=== PATIENT | male | born 1985 | race African-American/Black ===

== ENCOUNTER 2017-05-27 15:46 | Inpatient (IN) | payer SELFPAY ==
[2017-05-27 17:11] LABS: Urine Bacteria Absent (Absent); Urine Bilirubin Negative (Negative); Urine Glucose Negative (Negative); Urine Nitrite Negative (Negative)
[2017-05-27] MEDS ORDERED: oxyCODONE/Acetamin 5/325 MG* TAB PO ONE (17:48)
--- NOTE | 2017-05-27 18:15 | RAD ---
Indication: Left flank pain. Real-time sonography of the left kidney was performed. The left kidney measures 10.8 x 6.0 x 4.9 cm. No hydronephrosis is noted. IMPRESSION: Unremarkable left kidney.
[2017-05-27 18:30] LABS: Hematocrit 43 % (42-52); Hemoglobin 14.5 g/dl (14.0-18.0); Mean Corpuscular HGB Conc 34 g/dl (31-36); Mean Corpuscular Hemoglobin 30 pg (27-31); Mean Corpuscular Volume 89 fL (80-94); Mean Platelet Volume 8 um3 (7.4-10.4); Red Blood Count 4.77 10^6/ul (4.0-5.4); Red Cell Distribution Width 14 % (10.5-15); White Blood Count 9.3 10^3/ul (3.5-10.8)
[2017-05-27 18:44] LABS: Albumin 4.3 g/dL (3.2-5.2); BUN/Creatinine Ratio 10.1 (8-20); C Reactive Protein 158.95 mg/L (< 5.00); Calcium 9.6 mg/dL (8.6-10.3); EGFR African American 113.4 (>60); EGFR Non-African American 88.2 (>60); Globulin 2.9 g/dL (2-4); Potassium 3.9 mmol/L (3.5-5.0); Total Bilirubin 0.8 mg/dL (0.2-1.0); Total Protein 7.2 g/dL (6.4-8.9)
[2017-05-27] MEDS ORDERED: NS 0.9% 1000 ML* 1,000 ML IV ONE (19:59)
[2017-05-27] MEDS ORDERED: Ketorolac INJ* 30 MG/ML 1 ML VIAL IV ONE (19:59)
[2017-05-27] MEDS ORDERED: Ondansetron INJ* 2 MG/ML VIAL IV ONE (19:59)
--- NOTE | 2017-05-27 20:51 | RAD ---
Indication: Left flank pain. CT of the abdomen was performed after oral contrast administration. No IV contrast was given. Coronal and sagittal reconstructed images were obtained. The lung bases demonstrate no pleural fluid, nodules or masses. Heart is of normal size and configuration without pericardial effusion. The liver is normal in size. No focal lesions or intrahepatic ductal dilatation. The gallbladder demonstrates no calcified gallstones. No pericholecystic fluid or wall thickening is identified. The spleen is normal in size. No adrenal masses are noted. The kidneys demonstrate symmetric nephrograms. Small bowel demonstrates no abnormal dilatation. There is at the proximal descending colon reticulation of fat with suggestion of a small focal area of extraluminal air. This may represent a locally perforated diverticula and diverticulitis. Peridiverticular abscess is identified however. Minimal wall thickening of the descending colon is noted. The remainder of the colon is unremarkable. Urinary bladder is unremarkable. No free fluid is identified in the pelvis. The visualized bony structures are grossly unremarkable. IMPRESSION: Findings consistent with likely diverticulitis of the proximal descending colon near the splenic flexure. No peridiverticular abscess is noted. There is likely a tiny localized perforation with a small focus of extraluminal air noted in this region.
--- NOTE | 2017-05-27 21:42 | ED ---
Cathy Uriostegui Alfonso, scribed for Radha Rashid MD on 05/27/17 at 1744 . Abdominal Pain/Male - HPI Summary HPI Summary: This patient is a 31 year old M presenting to [facility] with a chief complaint of left flank pain since a few days ago. The patient rates the pain 8/10 in severity. Symptoms aggravated by cough and deep breath. Symptoms alleviated by nothing. Patient reports dysuria. Patient denies testicular pain and cough. He denies a history of narcotic use. - History of Current Complaint Chief Complaint: EDUrogenitalProblems Stated Complaint: LT FLANK PAIN,PELVIC PAIN Time Seen by Provider: 05/27/17 17:15 Hx Obtained From: Patient Onset/Duration: Gradual Onset, Lasting Days, Still Present Timing: Constant Severity Currently: Moderate Pain Intensity: 8 Pain Scale Used: 0-10 Numeric - 8/10 Location: Flank - L Character: Sharp Aggravating Factor(s): Deep Breaths, Other: - cough Alleviating Factor(s): Nothing Associated Signs And Symptoms: Positive: Other - dysuria. Patient denies testicular pain and cough. - Allergies/Home Medications Allergies/Adverse Reactions: Allergies Allergy/AdvReac Type Severity Reaction Status Date / Time Peanut Oil Allergy Hives/Diff. Verified 10/07/15 19:05 Breathing/I tching Tree Nuts Allergy Hives/Diff. Verified 10/07/15 19:05 Breathing/I tching PMH/Surg Hx/FS Hx/Imm Hx Opthamlomology History: Denies: Hx Legally Blind EENT History: Denies: Hx Deafness - Immunization History Date of Influenza Vaccine: did not get in Infectious Disease History: No Infectious Disease History: Denies: Traveled Outside the [place] in Last 30 Days - Family History Known Family History: Positive: Other - Grandmother with cancer, DM and HTN - Social History Lives: With Family - with girlfriend and child Alcohol Use: Occasionally Hx Substance Use: Yes Substance Use Type: Reports: Marijuana Hx Tobacco Use: Yes Smoking Status (MU): Light Every Day Tobacco Smoker Review of Systems Negative: Fever Negative: Cough Positive: Abdominal Pain - Left flank and LUQ pain Positive: dysuria, other - Negative testicular pain All Other Systems Reviewed And Are Negative: Yes Physical Exam - Summary Physical Exam Summary: General: Well appearing, no pain distress Skin: Warm, Skin Color Reflects Adequate Perfusion, Dry Eyes: EOMI, MARTHA ENT: Pharynx normal, TMs normal Neck: Supple, nontender Respiratory: CTA, breath sounds present, no rhonchi, no wheezes, no rales Cardiovascular: RRR, no murmur, no rub, no gallop Abdomen: Soft, Left flank and LUQ tenderness. Non-distended, no guarding, no rebound Bowel: Present Musculoskeletal: ALISE, No edema Neuro: Sensory/motor intact, A&Ox3, CN intact 2-12 Psych: Affect/mood appropriate Triage Information Reviewed: Yes Vital Signs On Initial Exam: Initial Vitals Temp Pulse Resp BP Pulse Ox 98.5 F 84 20 109/70 100 05/27/17 15:55 05/27/17 15:55 05/27/17 15:55 05/27/17 15:55 05/27/17 15:55 Vital Signs Reviewed: Yes - Jackson Coma Scale Coma Scale Total: 15 Diagnostics - Vital Signs Vital Signs Temp Pulse Resp BP Pulse Ox 05/27/17 15:55 98.5 F 84 20 109/70 100 - Laboratory Lab Results: Lab Results 05/27/17 Range/Units 16:55 Urine Color Venecia Urine Appearance Clear Urine pH 6.0 (5-9) Ur Specific [place] 1.030 (1.010-1.030) Urine Protein 1+(30 mg/dl) H (Negative) Urine Ketones 1+ H (Negative) Urine Blood Negative (Negative) Urine Nitrate Negative (Negative) Urine Bilirubin Negative (Negative) Urine Urobilinogen Negative (Negative) Ur Leukocyte Esterase Negative (Negative) Urine WBC (Auto) Trace(0-5/hpf) (Absent) Urine RBC (Auto) Trace(0-2/hpf) (Absent) Ur Squamous Epith Cells Present H (Absent) Urine Bacteria Absent (Absent) Urine Glucose Negative (Negative) Result Diagrams: 05/27/17 18:23 05/27/17 18:23 Lab Statement: Any lab studies that have been ordered have been reviewed, and results considered in the medical decision making process. - CT A/P CT Interpretation Completed By: Radiologist - Findings consistent with likely diverticulitis of the proximal descending colon near the splenic flexure. No peridiverticular abscess is noted. There is likely a tiny localized perforation with a small focus of extraluminal air noted in this region. ED physician has reviewed this radiology report and agrees. - Additional Comments Diagnostic Additional Comments: US renal reveals, per radiologist, Unremarkable left kidney. ED physician has reviewed this radiology report and agrees. Abdominal Pain Fem Course/Dx - Course Course Of Treatment: 31 yo male with luq pain with elevated crp ct shows diverticulitis with microperforation, pt covered with zosyn and case was discussed with Dr. Mayer - Diagnoses Provider Diagnoses: Diverticulitis Discharge - Discharge Plan Condition: Stable Disposition: ADMITTED TO [facility] documentation as recorded by the Cathy cancino Alfonso accurately reflects the service I personally performed and the decisions made by me, Radha Rashid MD.
[2017-05-27] MEDS ORDERED: Acetaminophen TAB* 325 MG PO PRN (22:11)
[2017-05-27] MEDS ORDERED: Morphine INJ* 2 MG/ML 1 ML CARPUJECT IV PRN (22:12)
[2017-05-28] MEDS: NS 0.9% 1000 ML* 1,000 ML IV SCH ×4 (00:11→23:34)
[2017-05-28] MEDS ORDERED: Zosyn per Pharmacy* NOTE FOLLOW UP SCH (01:00)
[2017-05-28] MEDS ORDERED: metroNIDAZOLE IV 250 MG/50ML* 50 ML IVPB SCH (01:00)
[2017-05-28] MEDS ORDERED: Ondansetron INJ* 2 MG/ML VIAL IV PRN (01:48)
[2017-05-28] MEDS: ZOSYN 3.375 GM Q8H per EXTENDED INFUSION IVPB SCH ×6 (05:00→19:38)
[2017-05-28] MEDS: Triamcinolone 0.025% OINT * 15 GM TUBE TOPICAL SCH ×4 (06:05→19:31)
[2017-05-28] MEDS: metroNIDAZOLE TAB* 250 MG PO SCH ×3 (08:36→19:29)
[2017-05-28] MEDS: Morphine INJ* 2 MG/ML 1 ML SYRINGE (TWO MG - NEW SYRINGE VERSION) IV PRN (08:39)
--- NOTE | 2017-05-28 10:07 | HP ---
HISTORY AND PHYSICAL: DATE OF ADMISSION: 05/27/17 CHIEF COMPLAINT: Left lower quadrant pain. HISTORY OF PRESENT ILLNESS: Mr. Wang is a 31-year-old man with no known past medical history who developed left lower quadrant pain about 24 hours prior to admission. He states the pain was 8/10 and steady. He has been unable to sleep due to the pain. The pain was located in his left upper quadrant and left flank. He has had no nausea, no vomiting, or diarrhea, but he has had some anorexia. Two days prior to development of pain, he did develop some urinary hesitancy and some mild dysuria, but denies any hematuria or frequency. There is no urethral discharge. He has had no fevers. PAST MEDICAL HISTORY: He had asthma as a child but this resolved. PAST SURGICAL HISTORY: Keloid removal from the right side of his neck. MEDICATIONS ON ADMISSION: None. ALLERGIES: None. FAMILY HISTORY: Notable for mother with atrial fibrillation. Maternal grandmother with diabetes. SOCIAL HISTORY: He works as a cook. He is . He has 2 children. He smokes tobacco, occasionally cigarette about twice a week. He drinks alcohol occasionally. He uses marijuana regularly. REVIEW OF SYSTEMS: The patient denies any fevers or weight loss. Patient denies any chest pain or palpitations. The patient denies any shortness of breath or cough. Remainder of his 14-point review of systems is negative other than mentioned in the HPI. PHYSICAL EXAMINATION GENERAL: He is alert, in no acute distress. VITAL SIGNS: Temperature is 36.5, pulse 84, respirations 20, blood pressure is 120/89, O2 sat is 97%. HEENT: Head is normocephalic, atraumatic. Sclerae anicteric. Pupils are equal , round, and reactive to light and accommodation. Oropharynx is moist, no lesions. NECK: No JVD. No carotid bruits. No thyromegaly. LUNGS: Clear to auscultation and percussion bilaterally. HEART: Regular rate and rhythm. No murmurs, rubs, or gallops. ABDOMEN: Soft, but tender in the left upper quadrant with guarding present. No rebound. There is no CVA tenderness. No palpable masses. Positive bowel sounds. EXTREMITIES: No peripheral edema. Dorsalis pedis pulses are 2+ bilaterally. NEUROLOGIC: Cranial nerves II through XII are intact. Motor strength is 5/5 throughout. Deep tendon reflexes are symmetric. SKIN: Notable for erythematous scaly rash circumferentially around the neck. PSYCHIATRIC: Alert and oriented x3. LABORATORY DATA: Sodium 125, potassium 3.9, chloride 99, bicarb 29, BUN 10, creatinine 0.99, glucose 88, calcium 9.6, albumin 4.3, AST 25, ALT 23, bilirubin 0.8, CRP 159. White count 9.3, hemoglobin 14.5, hematocrit 42%, platelets 227. Urinalysis shows 1+ protein, 1+ ketones. CT of abdomen and pelvis shows proximal descending colon with diverticulitis and probable microperforation. Renal ultrasound is negative for kidney stones. ASSESSMENT AND PLAN: A 31-year-old man presenting with diverticulitis first occasion. The patient will be admitted to the hospital for intravenous antibiotics due to the microperforation. There is a risk of abscess formation. Ideally we will give him quinolone and Flagyl, but apparently Flagyl is not available due to a nationwide shortage. He will be started on Zosyn IV in the ER. I am going to try him on oral Flagyl as an alternative. If he is doing well in a day or two he can go home on oral quinolone and Flagyl or oral Augmentin and Flagyl. For his urinary concerns GC, chlamydia and DNA probe has been sent from the ER appropriately, this will be followed up. UTI does not appear on the urinalysis. He has areas of eczema on his neck and this can be treated with topical steroids. The patient was advised to seek primary care upon discharge. For supportive care, he will have pain control, antiemetics as necessary, and intravenous fluids to prevent hypovolemia. DVT prophylaxis will be with just ambulation. Code status is full. [id number]/[facility] #: [id number] [facility]
--- NOTE | 2017-05-28 10:25 | PN ---
Subjective Date of Service: 05/28/17 Interval History: Mr. Wang is a 31 yo male with no significant PMH who presented to the ED on with concern for LLQ/left flank pain as well as urinary hesitancy and dysuria. ED evaluation revealed diverticulitis with ? microperforation. This morning, the patient is ambulating in room. He reports some mild improvement in pain but still endorses quite a bit of left flank pain. He is requesting something to drink and a small amount of food. Denies CP, SOB. No fever/chills overnight. Family History: Unchanged from Admission Social History: Unchanged from Admission Past Medical History: Unchanged from Admission Objective Active Medications: Acetaminophen (Tylenol Tab*) 650 mg PO Q4H PRN PRN Reason: HEADACHE/PAIN Sodium Chloride (Ns 0.9% 1000 Ml*) 1,000 mls @ 150 mls/hr IV PER RATE [facility] Last Admin: 05/28/17 08:35 Dose: 150 mls/hr Piperacillin Sod/Tazobactam (Sod 3.375 gm/ Sodium Chloride) 100 mls @ 25 mls/ hr IVPB Q8H [facility] Last Admin: 05/28/17 05:00 Dose: 25 mls/hr Metronidazole (Flagyl Tab*) 500 mg PO TID [facility] Last Admin: 05/28/17 08:36 Dose: 500 mg Morphine Sulfate (Morphine Inj (Syringe)*) 2 mg IV Q2H PRN PRN Reason: PAIN Last Admin: 05/28/17 08:39 Dose: 2 mg Ondansetron HCl (Zofran Inj*) 4 mg IV Q6H PRN PRN Reason: NAUSEA Pharmacy Consult (Zosyn Per Pharmacy*) 1 note FOLLOW UP .ZOSYN PER PHARMACY [facility] Triamcinolone Acetonide (Triamcinolone 0.025% Oint *) 1 applic TOPICAL TID [facility] Last Admin: 05/28/17 08:33 Dose: Not Given Vital Signs 05/27/17 05/27/17 05/28/17 23:38 23:45 00:12 Temperature 98.2 F 98.2 F 98.2 F Pulse Rate 70 70 70 Respiratory 20 16 20 Rate Blood Pressure 120/89 120/89 120/89 (mmHg) O2 Sat by Pulse 97 97 97 Oximetry 05/28/17 05/28/17 05/28/17 00:58 01:58 03:26 Temperature 97.8 F Pulse Rate 61 Respiratory 20 18 16 Rate Blood Pressure 110/60 (mmHg) O2 Sat by Pulse 99 Oximetry 05/28/17 05/28/17 05/28/17 07:55 08:39 09:39 Temperature 97.8 F Pulse Rate 58 Respiratory 18 16 16 Rate Blood Pressure 99/54 (mmHg) O2 Sat by Pulse 100 Oximetry Oxygen Devices in Use Now: None Appearance: Young male, ambulating in room, in NAD Eyes: No Scleral Icterus Ears/Nose/Mouth/Throat: Clear Oropharnyx, Mucous Membranes Moist Neck: NL Appearance and Movements; NL JVP Respiratory: Symmetrical Chest Expansion and Respiratory Effort, Clear to Auscultation Cardiovascular: NL Sounds; No Murmurs; No JVD, RRR Abdominal: - - Abdomen soft, LLQ/left flank tenderness with guarding, BS present Extremities: No Edema, No Clubbing, Cyanosis Skin: - - scaly rash noted around neck circumference, healed site to right neck (old keloid removal) Neurological: Alert and Oriented x 3, NL Muscle Strength and Tone Lines/Tubes/Other Access: Clean, Dry and Intact Peripheral IV Nutrition: Taking PO's Result Diagrams: 05/27/17 18:23 05/27/17 18:23 Additional Lab and Data: Lab Results 05/27/17 Range/Units 16:55 Urine Color Venecia Urine Appearance Clear Urine pH 6.0 (5-9) Ur Specific [place] 1.030 (1.010-1.030) Urine Protein 1+(30 mg/dl) H (Negative) Urine Ketones 1+ H (Negative) Urine Blood Negative (Negative) Urine Nitrate Negative (Negative) Urine Bilirubin Negative (Negative) Urine Urobilinogen Negative (Negative) Ur Leukocyte Esterase Negative (Negative) Urine WBC (Auto) Trace(0-5/hpf) (Absent) Urine RBC (Auto) Trace(0-2/hpf) (Absent) Ur Squamous Epith Cells Present H (Absent) Urine Bacteria Absent (Absent) Urine Glucose Negative (Negative) Assess/Plan/Problems-Billing Assessment: Mr. Wang is a 31 yo male who presented to the ED with left flank/LLQ pain that is secondary to diverticulitis. - Patient Problems (1) Diverticulitis Comment: CT showed diverticulitis with concern for microperforation Patient afebrile, though with persistent LLQ pain. Continue IV Zosyn and PO metronidazole (IV unavailable). Will attempt clear liquids, advance diet as tolerated and as clinically indicated. Continue supportive care with IVF, antiemetics, and analgesia. (2) Dysuria Code(s): R30.0 - DYSURIA Comment: UA does not indicate infection GC/chlamydia sent in ED and is pending. No stones seen on imaging (3) Eczema Code(s): L30.9 - DERMATITIS, UNSPECIFIED Comment: Continue topical triamcinolone. (4) DVT prophylaxis Comment: Encourage ambulation. Status and Disposition: Inpatient admission. D/c to home when medically stable.
[2017-05-28] MEDS ORDERED: Influenza VAC *QUAD* 2017-18* 0.5 ML SYRINGE IM ONE (13:00)
[2017-05-29] MEDS: ZOSYN 3.375 GM Q8H per EXTENDED INFUSION IVPB SCH ×6 (04:28→20:23)
[2017-05-29] MEDS: NS 0.9% 1000 ML* 1,000 ML IV SCH ×3 (06:05→17:50)
[2017-05-29 06:56] LABS: Hematocrit 39 % (42-52); Hemoglobin 13.2 g/dl (14.0-18.0); Mean Corpuscular HGB Conc 34 g/dl (31-36); Mean Corpuscular Hemoglobin 30 pg (27-31); Mean Corpuscular Volume 88 fL (80-94); Mean Platelet Volume 8 um3 (7.4-10.4); Red Blood Count 4.43 10^6/ul (4.0-5.4); Red Cell Distribution Width 14 % (10.5-15); White Blood Count 4.5 10^3/ul (3.5-10.8)
[2017-05-29 07:21] LABS: EGFR African American 112.1 (>60); EGFR Non-African American 87.2 (>60); Potassium 3.8 mmol/L (3.5-5.0)
[2017-05-29] MEDS: Triamcinolone 0.025% OINT * 15 GM TUBE TOPICAL SCH ×3 (08:53→21:06)
[2017-05-29] MEDS: metroNIDAZOLE TAB* 250 MG PO SCH ×3 (08:53→20:23)
[2017-05-29] MEDS: Morphine INJ* 2 MG/ML 1 ML SYRINGE (TWO MG - NEW SYRINGE VERSION) IV PRN ×3 (08:58→21:06)
[2017-05-29 09:16] LABS: C Reactive Protein 65.91 mg/L (< 5.00)
--- NOTE | 2017-05-29 18:36 | PN ---
Subjective Date of Service: 05/29/17 Interval History: Pt seen and evaluated at his bedside. He reports he feels "a little better today " but continues to have left lower quad pain which he states his better at rest and worse with movement. He denies nausea or vomiting. Denies appetite. He reports some loose stool but states this is mild. Reports his stomach feel "bubbly with lots of gas". No fever or chills. Denies hx of irregular stool patterns. Does not feel ready to go home. Family History: Unchanged from Admission Social History: Unchanged from Admission Past Medical History: Unchanged from Admission Objective Active Medications: Acetaminophen (Tylenol Tab*) 650 mg PO Q4H PRN PRN Reason: HEADACHE/PAIN Sodium Chloride (Ns 0.9% 1000 Ml*) 1,000 mls @ 150 mls/hr IV PER RATE [facility] Last Admin: 05/29/17 17:50 Dose: 150 mls/hr Piperacillin Sod/Tazobactam (Sod 3.375 gm/ Sodium Chloride) 100 mls @ 25 mls/ hr IVPB Q8H [facility] Last Admin: 05/29/17 11:40 Dose: 25 mls/hr Metronidazole (Flagyl Tab*) 500 mg PO TID [facility] Last Admin: 05/29/17 13:45 Dose: 500 mg Morphine Sulfate (Morphine Inj (Syringe)*) 2 mg IV Q2H PRN PRN Reason: PAIN Last Admin: 05/29/17 13:51 Dose: 2 mg Ondansetron HCl (Zofran Inj*) 4 mg IV Q6H PRN PRN Reason: NAUSEA Pharmacy Consult (Zosyn Per Pharmacy*) 1 note FOLLOW UP .ZOSYN PER PHARMACY [facility] Triamcinolone Acetonide (Triamcinolone 0.025% Oint *) 1 applic TOPICAL TID [facility] Last Admin: 05/29/17 13:45 Dose: 1 applic Vital Signs 05/28/17 05/28/17 05/28/17 19:19 20:00 23:32 Temperature 98.5 F 98.1 F Pulse Rate 60 60 Respiratory 20 18 15 Rate Blood Pressure 122/65 129/73 (mmHg) O2 Sat by Pulse 100 99 Oximetry 05/29/17 05/29/17 05/29/17 03:43 07:59 08:58 Temperature 98.0 F 98.3 F Pulse Rate 55 59 Respiratory 14 18 16 Rate Blood Pressure 123/69 128/76 (mmHg) O2 Sat by Pulse 100 100 Oximetry 05/29/17 05/29/17 05/29/17 09:08 09:58 12:56 Temperature 97.9 F Pulse Rate 64 Respiratory 16 16 16 Rate Blood Pressure 122/70 (mmHg) O2 Sat by Pulse 99 Oximetry 05/29/17 05/29/17 05/29/17 13:51 14:15 15:42 Temperature 98.4 F Pulse Rate 62 Respiratory 16 16 16 Rate Blood Pressure (mmHg) O2 Sat by Pulse 100 Oximetry 05/29/17 15:45 Temperature Pulse Rate Respiratory Rate Blood Pressure 128/70 (mmHg) O2 Sat by Pulse Oximetry Oxygen Devices in Use Now: None Result Diagrams: 05/29/17 06:36 05/29/17 06:36 Additional Lab and Data: Lab Results 05/27/17 Range/Units 16:55 Urine Color Venecia Urine Appearance Clear Urine pH 6.0 (5-9) Ur Specific [place] 1.030 (1.010-1.030) Urine Protein 1+(30 mg/dl) H (Negative) Urine Ketones 1+ H (Negative) Urine Blood Negative (Negative) Urine Nitrate Negative (Negative) Urine Bilirubin Negative (Negative) Urine Urobilinogen Negative (Negative) Ur Leukocyte Esterase Negative (Negative) Urine WBC (Auto) Trace(0-5/hpf) (Absent) Urine RBC (Auto) Trace(0-2/hpf) (Absent) Ur Squamous Epith Cells Present H (Absent) Urine Bacteria Absent (Absent) Urine Glucose Negative (Negative) Microbiology and Other Data: Microbiology 05/29/17 13:00 Stool Occult Blood (SACHIN) - Final Stool Assess/Plan/Problems-Billing Assessment: Mr. Wang is a 31 yo male who presented to the ED with left flank/LLQ pain that is secondary to diverticulitis. - Patient Problems (1) Diverticulitis Comment: CT showed diverticulitis with concern for microperforation Patient afebrile, though with persistent LLQ pain. Stool for occult blood negative. Continue IV Zosyn and PO metronidazole (IV unavailable). Will attempt clear liquids, advance diet as tolerated and as clinically indicated. Continue supportive care with IVF, antiemetics, and analgesia. GI to consult (2) Dysuria Comment: Improving UA does not indicate infection GC/chlamydia sent in ED and is pending. No stones seen on imaging (3) Eczema Code(s): L30.9 - DERMATITIS, UNSPECIFIED Comment: Continue topical triamcinolone. (4) DVT prophylaxis Comment: Encourage ambulation. Status and Disposition: Inpatient admission. D/c to home when medically stable.
--- NOTE | 2017-05-29 22:53 | CONS ---
GASTROENTEROLOGY CONSULT: DATE OF CONSULT: 05/29/17 CONSULTING PHYSICIAN: Batsheva Castaneda MD REASON FOR CONSULTATION: Apparent diverticulitis with microperforation, descending colon with no preceding illness. 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 Pain was the first symptom and it became excruciating and he took a bus ride in the next day to the emergency room. The bus drive was particularly painful. He was not having any diarrhea, fever, rash, headache, etc. There had been no illness in the preceding week and his bowel pattern has not changed. In the ER, he was afebrile with normal white count. CT scan showed a probable microperforation and diverticulitis on the left side. He was admitted, placed on antibiotics, and says he has been feeling better. PAST MEDICAL HISTORY: 1. Keloid removal from his neck. 2. Childhood asthma. MEDICATIONS: None at home. ALLERGIES: When he eats tree nuts, he may get some itchiness in the mouth. He does not get any respiratory effect. SOCIAL HISTORY: He is from [place] [facility] [place] originally. His mother is a nurse in a penitentiary there. He is , has 2 children and for the last 2 months , has worked at [employer]. He smokes less than 1 cigarette a day. His diet is general. He has not used toothpicks. REVIEW OF SYSTEMS: No history of hemoptysis, TB, chest pain evaluations, palpitation, syncope, hepatitis, or jaundice. 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 LFTs are normal. HCB testing is negative. PHYSICAL EXAM: He is a slender, generally healthy-appearing young man, in no distress. He does have a tattoo on his neck. There are couple small skin scars. HEENT exam is unremarkable. He has clear lungs and normal heart sounds. The abdomen is symmetric, flat with normal bowel sounds, soft though some guarding in the left upper quadrant. Rectal deferred. Extremities show no edema. DIAGNOSTIC STUDIES/LAB DATA: CBC baseline, 12/23/14, showed hemoglobin 14.3, hematocrit 44, platelets 238, sed rate 5. A sickle cell screen is pending. IMPRESSION: Probable diverticulitis on the left side left upper quadrant. This is clearly unusual at age 31. He does not have a family history of this that he knows of, but his knowledge is rather sketchy. There is no indication of vasculitis or a mechanical perforation. Somewhere down the road in 5 to 6 weeks, a colonoscopy would be indicated to document diverticulosis in the absence of any unexpected pathology. [id number]/[facility] #: [id number] MTDD
[2017-05-30] MEDS: ZOSYN 3.375 GM Q8H per EXTENDED INFUSION IVPB SCH ×4 (04:19→12:15)
[2017-05-30 05:24] LABS: Hematocrit 40 % (42-52); Hemoglobin 13.7 g/dl (14.0-18.0); Mean Corpuscular HGB Conc 34 g/dl (31-36); Mean Corpuscular Hemoglobin 30 pg (27-31); Mean Corpuscular Volume 88 fL (80-94); Mean Platelet Volume 8 um3 (7.4-10.4); Red Blood Count 4.53 10^6/ul (4.0-5.4); Red Cell Distribution Width 14 % (10.5-15); White Blood Count 4.6 10^3/ul (3.5-10.8)
[2017-05-30 05:38] LABS: BUN/Creatinine Ratio 3.1 (8-20); C Reactive Protein 36.69 mg/L (< 5.00); Calcium 9.1 mg/dL (8.6-10.3); EGFR African American 117.5 (>60); EGFR Non-African American 91.4 (>60); Potassium 3.3 mmol/L (3.5-5.0)
[2017-05-30] MEDS: Triamcinolone 0.025% OINT * 15 GM TUBE TOPICAL SCH ×2 (08:47→14:02)
[2017-05-30] MEDS: metroNIDAZOLE TAB* 250 MG PO SCH ×2 (08:47→13:59)
--- NOTE | 2017-05-30 09:17 | PN ---
Subjective Date of Service: 05/30/17 Interval History: Patient seen and examined at bedside. Patent denies pain and is ready to try a regular diet. Patient states he has had 4 bowel movements yesterday - liquid but none overnight. Family History: Unchanged from Admission Social History: Unchanged from Admission Past Medical History: Unchanged from Admission Objective Active Medications: Acetaminophen (Tylenol Tab*) 650 mg PO Q4H PRN Sodium Chloride (Ns 0.9% 1000 Ml*) 1,000 mls @ 150 mls/hr IV PER RATE MUKUL Piperacillin Sod/Tazobactam (Sod 3.375 gm/ Sodium Chloride) 100 mls @ 25 mls/ hr IVPB Q8H MUKUL Metronidazole (Flagyl Tab*) 500 mg PO TID MUKUL Morphine Sulfate (Morphine Inj (Syringe)*) 2 mg IV Q2H PRN Ondansetron HCl (Zofran Inj*) 4 mg IV Q6H PRN Pharmacy Consult (Zosyn Per Pharmacy*) 1 note FOLLOW UP .ZOSYN PER PHARMACY MUKUL Triamcinolone Acetonide (Triamcinolone 0.025% Oint *) 1 applic TOPICAL TID [facility] 05/30/17 05/30/17 07:37 07:55 Temperature 98.0 F Pulse Rate 65 Respiratory 14 18 Rate Blood Pressure 133/83 (mmHg) O2 Sat by Pulse 100 Oximetry Oxygen Devices in Use Now: None Appearance: laying in bed, NAD Eyes: No Scleral Icterus, PERRLA Ears/Nose/Mouth/Throat: NL Teeth, Lips, Gums Neck: NL Appearance and Movements; NL JVP Respiratory: Symmetrical Chest Expansion and Respiratory Effort, Clear to Auscultation Cardiovascular: NL Sounds; No Murmurs; No JVD, RRR Abdominal: NL Sounds; No Tenderness; No Distention Skin: No Rash or Ulcers Neurological: Alert and Oriented x 3, NL Muscle Strength and Tone Lines/Tubes/Other Access: Clean, Dry and Intact Peripheral IV Result Diagrams: 05/30/17 05:10 05/30/17 05:10 Assess/Plan/Problems-Billing Mr. Wang is a 31 yo male who presented to the ED with left flank/LLQ pain that is secondary to diverticulitis. - Patient Problems (1) Diverticulitis Comment: CT showed diverticulitis with concern for microperforation. Pain improved. Will advance to low residue. Continue Zosyn and PO Flagyl. Replete KCl. D/C IVF. (2) Dysuria Comment: Improving. UA negative. GC/Chlamydia pending. (3) Eczema Comment: Continue topical triamcinolone. (4) DVT prophylaxis Comment: Encourage ambulation. (5) Full code status Status and Disposition: Inpatient admission. Stable to be discharged home.
[2017-05-30] MEDS: Morphine INJ* 2 MG/ML 1 ML SYRINGE (TWO MG - NEW SYRINGE VERSION) IV PRN (10:43)
[2017-05-30 12:37] LABS: Urine Bilirubin Negative (Negative); Urine Glucose Negative (Negative); Urine Nitrite Negative (Negative)
[2017-05-30 16:22] VITALS: BP 116/66
--- NOTE | 2017-05-31 08:57 | DS ---
CC: OPAL Trimble* DISCHARGE SUMMARY: DATE OF ADMISSION: 05/27/17 DATE OF DISCHARGE: 05/30/17 PRIMARY CARE PROVIDER: OPAL Trimble ATTENDING PHYSICIAN: Dr. Rosetta Cloud* (report dictated by Juliana Kendall NP). PRIMARY DIAGNOSIS: Acute diverticulitis. MEDICATIONS AT THE TIME OF DISCHARGE: New medications: 1. Augmentin 825 mg oral twice daily for 11 days. 2. Triamcinolone 1 application topical to hands daily. 3. Oxycodone 5 mg oral every 8 hours as needed, not to exceed 3 per day. The patient's I-STOP record was checked. The patient currently has no medications. The following medication to continue, Tessalon 100 mg three times daily. The patient is instructed to discontinue Tamiflu. IMAGES STUDIES WHILE IN THE HOSPITAL: On 05/27/17, CT of abdomen and pelvis without contrast, study is consistent with likely diverticulosis of the proximal descending colon near the splenic flexure. No peridiverticular abscess is noted. There is likely a tiny localized perforation with a small focus of extra luminal air noted in this region. HISTORY OF PRESENT ILLNESS AND HOSPITAL COURSE: Mr. Wang is a 31-year-old male with no significant past medical history who developed left lower quadrant pain, 24 hours prior to presenting to the emergency room on 05/27/17. The patient denied any nausea, vomiting or diarrhea. He presented to the emergency room for further evaluation and in the emergency room, CT scan of the abdomen and pelvis revealed diverticulitis with possible microperforation. In the emergency room, the patient was given IV Zosyn. He was admitted to the medical floor and continued on IV fluids and IV Zosyn. After 24-hour observation, his diet was advanced to oral liquids. He intermittently required IV morphine, but overall his pain improved. On the morning of 05/30/17, he was able to tolerate a low residue diet and is able to be transitioned to oral antibiotics. At this point, he was stable for discharge. Vital signs are as follows: Temperature 98 , heart rate 69, respiratory rate 14, blood pressure 116/68. His oxygen saturation is 98%. At this point, he is stable for discharge. DISCHARGE PLANNING: The patient is discharged on a low-residue diet. The patient is instructed regarding which foods high in fiber he should avoid. The patient has been instructed to follow up with Byron Laguerre. He has an appointment with him on 06/03/17 at 1:45 p.m. In addition, he is instructed to follow up with Dr. Gonzalez in 4 to 6 weeks for colonoscopy. I have reviewed all of these instructions with the patient. He is agreeable with his discharge today. This is a summarized report of a complex medical history and hospital stay. For more details, please see the entire medical record. TIME SPENT: Time for this discharge was 60 minutes, and 35 minutes were spent with the patient discussing medications, discharge plans and followup instructions. CONDITION ON DISCHARGE: Stable. JULIANA KENDALL NP [id number]/[facility] #: [id number] LEONA
== END 2017-05-30 17:00 | disposition home or self-care (01) | DRG 392 ==
LOC: ED 15:46 → MED 22:09
PROVIDERS: ADMIT Internal Medicine; ATTEND Internal Medicine
DX: K57.20 Diverticulitis of large intestine with perforation and abscess without bleeding (principal); F12.10 Cannabis abuse, uncomplicated; L30.9 Dermatitis, unspecified; F17.210 Nicotine dependence, cigarettes, uncomplicated; R30.0 Dysuria; Z83.3 Family history of diabetes mellitus
CPT/HCPCS: 36415; 74176; 76775; 80048; 80053; 81003; 81015; 82270; 85025; 85660; 86140; 86703; 87491; 87591; 90686; A9270-GY; J1885; J2270; J2405; J2543

== ENCOUNTER 2017-10-02 08:41 | Observation (INO) | payer SELFPAY ==
[2017-10-02] MEDS ORDERED: NS 0.9% 1000 ML* 1,000 ML IV ONE (08:57)
[2017-10-02 09:22] LABS: ABS Basophils 0 10^3/ul (0-0.2); ABS Eosinophils 0.1 10^3/ul (0-0.6); ABS Lymphocytes 2.9 10^3/ul (1.0-4.8); ABS Neutrophils 2.8 10^3/ul (1.5-7.7); ABS Nucleated RBC 0 10^3/ul; Eosinophil % 0.8 % (0-6); Hematocrit 49 % (42-52); Hemoglobin 16.6 g/dl (14.0-18.0); Lymphocyte % 43.4 % (25-47); Mean Corpuscular HGB Conc 34 g/dl (31-36); Mean Corpuscular Hemoglobin 29 pg (27-31); Mean Corpuscular Volume 87 fL (80-94); Mean Platelet Volume 7 um3 (7.4-10.4); Nucleated Red Blood Cells % 0.2; Platelet Count 285 10^3/ul (150-450); Red Blood Count 5.64 10^6/ul (4.0-5.4); Red Cell Distribution Width 15 % (10.5-15); White Blood Count 6.7 10^3/ul (3.5-10.8)
[2017-10-02 09:34] LABS: INR 0.83 (0.77-1.02)
[2017-10-02 09:37] LABS: EGFR Non-African American 64.5 (>60)
--- NOTE | 2017-10-02 10:43 | RAD ---
Indication: Weakness. CT of the brain was performed without IV contrast. Ventricular structures are midline. No midline shift is noted. The extra-axial spaces are unremarkable. There is no evidence of intracranial mass or hemorrhage. No other high or low density lesions are identified. Mastoid air cells and paranasal sinuses are otherwise unremarkable. IMPRESSION: No intracranial mass or hemorrhage is noted.
--- NOTE | 2017-10-02 10:48 | RAD ---
Indication: Chest pressure. Single frontal view of the chest performed at 0924 hours was reviewed. Comparison is made with previous exam dated October 07, 2015. No mediastinal shift is noted. Heart is of normal size and configuration. Lung baez appear clear. IMPRESSION: NO ACTIVE CARDIOPULMONARY DISEASE IS NOTED.
[2017-10-02] MEDS ORDERED: Diltiazem TAB* 30 MG PO ONE (11:31)
[2017-10-02] MEDS ORDERED: Rivaroxaban TAB(*) 10 MG PO ONE (11:36)
[2017-10-02] MEDS ORDERED: Rivaroxaban TAB(*) 20 MG TAB PO ONE (12:00)
[2017-10-02] MEDS ORDERED: Potassium Chlor TAB* 20 MEQ TAB.ER PO ONE ×2 (13:18→17:00)
[2017-10-02] MEDS ORDERED: Morphine INJ* 2 MG/ML 1 ML CARPUJECT IV ONE (13:22)
[2017-10-02] MEDS ORDERED: Acetaminophen TAB* 325 MG PO PRN ×2 (13:22→20:21)
[2017-10-02] MEDS ORDERED: Ondansetron INJ* 2 MG/ML VIAL IV PRN (13:24)
[2017-10-02] MEDS: NS 0.9% 1000 ML* 1,000 ML IV SCH ×2 (13:33→18:18)
[2017-10-02] MEDS ORDERED: LORazepam INJ* 2 MG/ML 1 ML VIAL IV PUSH PRN (13:43)
--- NOTE | 2017-10-02 17:42 | CONSULT ---
Subjective Date of Service: 10/02/17 Interval History: Date of admission and consult 10/02/2017 Service: Hospitalist PMD: None CC: Chest discomfort, dyspnea Reason for consult: atrial fibrillation HPI: Jim Wang is a 32 year old man with a history of childhood asthma who presented this AM to to ER with heart feeling tight and could not breath. He had been at a democrat Tuesday night and drank 375 ml of vodka and snorted what he thought was ecstasy but toxicology screen is positive for cocaine. He went to work Tuesday at [employer] and other than feeling tired had felt to be his baseline self. He initially stated his symptoms started this AM and was found to be in new onset atrial fibrillation. Laboratory work was significant for a potassium of 3.2. He was given rate control with diltiazem, xarelto 20 mg po and potassium replacement. His heart rate is now well controlled and he continues to feel these symptoms. Given his symptoms were less than 24 hours I recommended an electrical cardioversion without SHELBY. His mother has atrial fibrillation and has had SHELBY/cardioversions in the past. She is a nurse at a jail in [facility]. Her EP physician is at [place]. She states that he may have actually been in atrial fibrillation for 2 or 3 days with chest pain and did not realize it and needs a SHELBY prior to cardioversion. Pmhx: childhood asthma Soc hx: Patient usually has one 6 back of beer a week and smokes marijuana daily. The heavier drug use and excessive alcohol use is not a regular occurence. Quit smoking tobacco several years ago. Does some jogging and pushups. Was incarcerated for 2 and 1/2 years until 2011. Works at [employer]. from , has 1 biological child. Originally from [facility], moved here about 4 years ago. Family hx: Mother with afib Allergies: Shellfish,peanuts, sesame seeds Home Meds: None Medications Active Medications: Acetaminophen (Tylenol Tab*) 325 mg PO Q6H PRN PRN Reason: PAIN OR TEMPERATURE Diltiazem HCl (Cardizem Tab*) 30 mg PO Q6HR MUKUL Sodium Chloride (Ns 0.9% 1000 Ml*) 1,000 mls @ 150 mls/hr IV PER RATE MUKUL Stop: 10/03/17 20:09 Last Admin: 10/02/17 13:33 Dose: 150 mls/hr Lorazepam (Ativan Inj*) 0.5 mg IV PUSH Q6H PRN PRN Reason: ANXIETY Ondansetron HCl (Zofran Inj*) 4 mg IV Q6H PRN PRN Reason: NAUSEA Rivaroxaban (Xarelto(*)) 20 mg PO DAILY MUKUL Home Medications: NK [No Home Medications Reported] 10/02/17 [History Confirmed 10/02/17] Review of Systems - Measurements Intake and Output: Intake and Output Last 24 Hours 09/30/17 10/01/17 10/02/17 10/03/17 06:59 06:59 06:59 06:59 Weight 170 lb 3.2 oz - Review of Systems Constitutional Symptoms: Negative: Weight Gain, Weight Loss, Fatigue, Fever, Night Sweats Dermatology: Negative: Rash, Skin Lesions HEENT: Negative: Change in Hearing, Vertigo Eyes: Negative: Change in Vision, Double Vision Thyroid: Positive: Palpitations Negative: Goiter, Thyroid Nodule, Cold Intolerance, Heat Intolerance, Sweatiness, Frequent Defecation, Constipation, Weight Loss, Weight Gain Pulmonary: Positive: Shortness of Breath Negative: Cough, Sputum, Hemoptysis, Wheezing, Respiratory Distress, COPD, Asthma, Exercise Intolerance Cardiology: Positive: Chest Pain, Shortness of Breath Negative: Palpitations, Swelling of Ankles, Peripheral Vascular Dis, Edema, Syncope, Claudication, Paroxysmal Nocturnal Dyspnea, Orthopnea Gastroenterology: Negative: Abdominal Pain, Nausea, Vomiting, Anorexia, Indigestion, Difficulty Swallowing, Heartburn, Constipation, Diarrhea, Blood in Stools, Change in Bowel Habits, Haematemesis, Melena Genital - Urinary: Negative: Dysuria, Hematuria, Polyuria Musculoskeletal: Negative: Joint Pain, Joint Stiffness, Arthritis Endocrinology: Negative: Thyroid Problems, Obesity, Diabetes, Hyperglycemia, Hypoglycemia, Polydipsia, Polyuria Hematologic/Lymphatic: Negative: Anemia, Hx Leukemia, Hx Lymphoma, Use of Anticoagulant, Use of Antiplatelet Drugs Neurology: Negative: Headaches, Migraines, Change in Vision, Diplopia, Change in Balancing, Change in Coordination, Change in Memory, Change in Speech, Change in Sphincter Function, Change in Walking, Numbness\Paresthesiae, Hx of Stroke\ TIA, Hx Seizures Psychiatry: Negative: Unusual Anxiety, Suicidal Ideation Allergic/Immunologic: Positive: Athsma Negative: Hx HIV, Immunocompromise Review of Systems Statement: All other review of systems negative, unless stated above. Objective Vital Signs: Temp Pulse Resp BP Pulse Ox 97.9 F 83 16 122/67 100 10/02/17 15:00 10/02/17 15:00 10/02/17 16:16 10/02/17 15:00 10/02/17 15:00 Oxygen Devices in Use Now: None Appearance: nad, pleasant Ears/Nose/Mouth/Throat: Clear Oropharnyx, Mucous Membranes Moist Neck: NL Appearance and Movements; NL JVP, Trachea Midline Respiratory: Symmetrical Chest Expansion and Respiratory Effort, Clear to Auscultation Cardiovascular: - - irregularly irregular, no significant murmur, no edema Abdominal: NL Sounds; No Tenderness; No Distention, No Hepatosplenomegaly Extremities: No Edema, No Clubbing, Cyanosis Skin: No Rash or Ulcers Neurological: Alert and Oriented x 3 Laboratory Results: 10/02/17 08:53 10/02/17 08:53 mg 1.2 INR (Anticoag Therapy) 0.83 (0.77-1.02) 10/02/17 08:53 Total Bilirubin 0.80 mg/dL (0.2-1.0) 10/02/17 08:53 AST 27 U/L (13-39) 10/02/17 08:53 ALT 25 U/L (7-52) 10/02/17 08:53 Alkaline Phosphatase 56 U/L (34-104) 10/02/17 08:53 B-Natriuretic Peptide 17 pg/mL (-100) 10/02/17 08:53 Total Protein 8.1 g/dL (6.4-8.9) 10/02/17 08:53 Albumin 5.0 g/dL (3.2-5.2) 10/02/17 08:53 Globulin 3.1 g/dL (2-4) 10/02/17 08:53 Albumin/Globulin Ratio 1.6 (1-3) 10/02/17 08:53 TSH 3.60 mcIU/mL (0.34-5.60) 10/02/17 08:53 10/02/17 10/02/17 10/02/17 08:53 11:46 15:19 Troponin I 0.00 0.00 0.00 tox screen: + cocaine and marijuana, serum etoh negative Diagnostic Imaging: CT head 10/02/2017: negative CXR today: no acute disease EKG Data: EKG admission 10/02/2017: Afib rate 93 bpm, early repolarization pattern, pvc's vs. tran beats repeat ekg Afib rate 70, otherwise unchanged, tran beat vs. pvc Assessment/Plan In summary, Mr. Wang is a 32 year old man with highly symptomatic atrial fibrillation of uncertain duration despite rate control in the setting of excess alcohol use and cocaine use. - Will plan for SHELBY/cardioversion tomorrow. Risks, benefits and alternatives discussed and patient wishes to proceed - Given an extra 20 meq potassium now and check AM BMP (ordered) - Continue xarelto 20 mg po daily for 1 month post-cardioversion, ensure has dose in AM. He understands that failure to take this medicine post- cardioversion after being in atrial fibrillation > 48 hours may lead to systemic embolization including stroke. SW consult to help determine insurance coverage - Continue telemetry monitoring - Continue diltiazem 30 mg po QID - Patient advised that any further excessive alcohol use or illicit drug use may lead to thinks including but not limited to stroke, heart attack, aortic dissection or . He expressed understanding of this. Thank you for allowing me to participate in the cardiovascular care of this patient. Please do not hesitate to contact me with questions or concerns.
[2017-10-02] MEDS: Diltiazem TAB* 30 MG PO SCH ×2 (17:44→17:46)
[2017-10-02] MEDS ORDERED: Morphine INJ* 2 MG/ML 1 ML CARPUJECT IV PRN (20:20)
--- NOTE | 2017-10-02 20:21 | HP ---
CC: OPAL Trimble * ADMISSION HISTORY AND PHYSICAL: DATE OF ADMISSION: 10/02/17 PRIMARY CARE PROVIDER: OPAL Trimble MY ATTENDING PHYSICIAN WHILE IN THE HOSPITAL: Dr. Ezra Infante* (DICTATED BY JONAH WHALEY) CHIEF COMPLAINT: Chest pain. HISTORY OF PRESENT ILLNESS: Mr. Wang is a 32-year-old male with past medical history significant for childhood asthma and diverticulosis with diverticulitis last year who presents with several hours of extreme chest pain on the left side of his chest with associated shortness of breath and anxiety. The patient states that on Tuesday night, he was hanging out with some friends and snort a pill that he was told was Ecstasy, but may have had cocaine in it, he does not know. The patient then later that night had unprotected sex with a woman, whom he has never met before. The patient states that he feels "off " since then. However, the patient was able to work from 3 to 12 p.m. yesterday, had no other symptoms, ate a relatively large meal, went to sleep and woke up this morning having tightness and pain in his left chest. The patient called his friend to drive him to the hospital and states that while in the car, he began to have worsening chest tightness. He then felt significant anxiety like he could not catch his breath and numbness all over his body. The patient states that worse the chest pain was, rated at 10/10. The patient came to the emergency department and was found to be in rapid AFib with RVR. The patient continued to have chest pain. The patient had an EKG, which showed early repolarization, but no significant ST segment elevations. The patient had a negative troponin. The patient's rate and blood pressure were brought under control by Cardizem 30 mg immediate release. The patient's chest pain improved, but did not go away. The patient also had significant stabbing abdominal pain when he was in the emergency department, which also was not present before today. The patient denied recent illness, fevers, chills, nausea and vomiting, diarrhea, abdominal pain. The patient incidentally states that he had thick discharge from his penis yesterday and was concerned that he had contracted a sexually transmitted infection. The patient was admitted to the hospital for AFib with RVR and rule out myocardial infarction. PAST MEDICAL HISTORY: Childhood asthma, diverticulosis with diverticulitis. PAST SURGICAL HISTORY: None. MEDICATIONS: None. ALLERGIES: No known drug allergies. FAMILY HISTORY: The patient's mother has AFib. The patient's maternal grandmother has diabetes mellitus and has breast cancer and PE. SOCIAL HISTORY: The patient uses occasional tobacco products, but does not smoke cigarettes routinely. The patient drinks occasional alcohol. Smokes occasional marijuana and has used occasional recreational drugs including cocaine and Ecstasy since his teenage years. The patient works in [employer] at [employer]. The patient is from his and has 1 biological and 1 adopted child. REVIEW OF SYSTEMS: A 14-point review of systems was reviewed and is negative except as above. PHYSICAL EXAMINATION GENERAL: The patient is a 32-year-old male, who appears stated age and is sitting comfortably in bed, in no acute distress. VITAL SIGNS: At the time of evaluation, temperature 98.8, pulse rate 70, respiratory rate 16, oxygen saturation 100% on room air, blood pressure 116/77. HEENT: Head normocephalic, atraumatic. Sclerae anicteric. No conjunctival injection. Nasal mucosa is moist. Oral mucosa moist. No pharyngeal erythema without discharge or exudate. NECK: Supple, nontender. No lymphadenopathy. No carotid bruits auscultated. There is a scar from a keloid removal on the patient's right neck. RESPIRATORY: Clear to auscultation bilaterally. No wheezes, rales, or rhonchi. Good air exchange bilaterally. CARDIAC: Regular rate and rhythm. No clicks, murmurs, gallops, or rubs. Pulses are 2+ in bilateral dorsalis pedis, posterior tibialis and radial areas. The patient's chest is nontender to palpation. ABDOMEN: Soft. Bowel sounds present in all 4 quadrants. Tenderness to palpation with voluntary guarding in the right upper quadrant with referred tenderness to the left side of the abdomen. SKIN: Clean, dry, and intact except for keloid removal. No rash. NEUROLOGIC: Cranial nerves II through XII intact. No focal deficits. Alert and oriented x3. Psychiatric: Anxious, but pleasant and cooperative. LABORATORY DATA: White blood cell count 5.64, hemoglobin 16.6, hematocrit 49, MCV 87, MCH 29, MCHC 34, RDW 15, platelet count 285, INR 0.83. D-dimer less than 200, sodium 135, potassium 3.2, chloride 95, carbon dioxide 26, anion gap 14, BUN 10, creatinine 1.29, glucose 99, lactic acid 3.5, calcium 10.1, magnesium 2.0, bilirubin 0.8, AST 27, ALT 25, alkaline phosphatase 56, troponin I 0.00 x2. BNP 17, total protein 8.1, albumin 5.0, globulin 3.1, TSH 3.6. Urine shows positive cocaine and cannabinoids. HIV 1 and 2 antibody nonreactive. IMPRESSION: The patient is a 32-year-old male with past medical history significant for asthma and diverticulosis who presents in rapid atrial fibrillation 2 days after using illicit drugs with a positive cocaine screen. The patient will be admitted to the hospital for rule out myocardial infarction and transesophageal echocardiogram directed cardioversion in the morning. ASSESSMENT AND PLAN: 1. Chest pain. The patient's chest pain is likely from his atrial fibrillation with RVR as well as possible Prinzmetal angina and anxiety. The patient's atrial fibrillation and possible Prinzmetal angina will be treated with Cardizem immediate release 30 mg q.6 hours and blood pressure well controlled with this. The patient's EKG x2 show early repolarization or late ST segment elevation in the lateral leads. The patient was also treated with IV morphine with good relief of his chest pain and abdominal pain. The patient has negative troponins at this point. We will replace the patient's potassium. The patient's magnesium is normal. We will give the patient fluid as he has lactic acidosis and we will monitor on telemetry. The patient's plan for transesophageal echocardiogram with cardioversion in the morning. 2. Elevated creatinine. The patient's creatinine is elevated to 1.29. The patient had lactic acidosis and elevated anion gap. This is likely from cocaine use and dehydration. We will give fluids 3 L. Recheck the patient's lactic acid. No indication currently for urine studies. 3. Diverticulosis. The patient's abdominal pain has unknown cause at this time , but resolved well with morphine. If it persists, we will order CT scan of the abdomen or if the patient develops other systemic symptoms indicating possible intraabdominal infection. 4. DVT prophylaxis. The patient is low risk and he will be encouraged to ambulate ad-yogi. 5. FEN. The patient will have a heart healthy diet without caffeine. The patient will be n.p.o. after midnight. The patient will have fluids as above. 6. Code status. The patient is a full code. The patient would like his mother , Jazzmine Puckett, to be his healthcare proxy. DISPOSITION: The patient is admitted to observation. TIME SPENT: Approximately 60 minutes were spent on this admission, 30 of which was spent [id number] with the patient obtaining history and physical and discussing the treatment plan. JONAH WHALEY [id number]/[facility] #: [id number] MTDNancy
[2017-10-03] MEDS: Diltiazem TAB* 30 MG PO SCH ×2 (01:40→06:47)
[2017-10-03 06:41] LABS: EGFR Non-African American 87.6 (>60)
[2017-10-03] MEDS ORDERED: fentaNYL* 50 MCG/ML 2 ML VIAL (100 MCG VIAL) ONE (07:18)
[2017-10-03] MEDS ORDERED: Naloxone* 0.4 MG/ML 1 ML VIAL ONE (07:18)
[2017-10-03] MEDS ORDERED: Flumazenil* 0.1 MG/ML 5 ML MDV ONE (07:19)
[2017-10-03] MEDS ORDERED: Midazolam* 1 MG/ML 10 ML VIAL (10 MG) ONE (07:19)
[2017-10-03] MEDS ORDERED: Lidocaine 2% VISCOUS* 15 ML UDC ONE ×3 (07:19→09:17)
[2017-10-03] MEDS ORDERED: diPHENhydraMINE IV* 50 MG/ML 1 ml VIAL (BENADRYL) ONE (08:12)
--- NOTE | 2017-10-03 08:52 | PROCNOTE ---
Cardiology Procedure Note 10/03/2017 SHELBY/cardioversion Risks, benefits and alternatives discussed and patient wished to proceed Patient received 20 mg of xarelto yesterday and this AM Total sedation used 4 mg IV versed, 75 mcg IV fentanyl, 25 mg IV benadryl SHELBY no LA/IQRA thrombus Patient cardioverted with external electrical sync 120 J x 1 from atrial fibrillation to sinus rhythm Patient should not be discharged from hospital until it is ensured that he can afford or be given 1 month of xarelto.
--- NOTE | 2017-10-03 08:57 | PN ---
Subjective Date of Service: 10/03/17 Interval History: f/u afib K 4.0 this AM, patient still in symptomatic rate controlled atrial fibrillation no syncope or presyncope s/p SHELBY/cardioversion this AM Medications Active Medications: Acetaminophen (Tylenol Tab*) 650 mg PO Q6H PRN PRN Reason: PAIN OR TEMPERATURE Sodium Chloride (Ns 0.9% 1000 Ml*) 1,000 mls @ 150 mls/hr IV PER RATE [facility] Stop: 10/03/17 20:09 Last Admin: 10/02/17 18:18 Dose: 150 mls/hr Lorazepam (Ativan Inj*) 0.5 mg IV PUSH Q6H PRN PRN Reason: ANXIETY Morphine Sulfate (Morphine Inj (Syringe)*) 1 mg IV Q4H PRN PRN Reason: PAIN - MILD Last Admin: 10/02/17 20:29 Dose: 1 mg Ondansetron HCl (Zofran Inj*) 4 mg IV Q6H PRN PRN Reason: NAUSEA Rivaroxaban (Xarelto(*)) 20 mg PO DAILY [facility] Objective Vital Signs: Temp Pulse Resp BP Pulse Ox 98.0 F 64 16 91/63 100 10/03/17 06:47 10/03/17 07:19 10/03/17 07:19 10/03/17 07:19 10/03/17 07:19 Oxygen Devices in Use Now: None Appearance: nad, pleasant Ears/Nose/Mouth/Throat: Clear Oropharnyx, Mucous Membranes Moist Neck: NL Appearance and Movements; NL JVP, Trachea Midline Respiratory: Symmetrical Chest Expansion and Respiratory Effort, Clear to Auscultation Cardiovascular: - - irregularly irregular, no significant murmur, no edema Abdominal: NL Sounds; No Tenderness; No Distention, No Hepatosplenomegaly Extremities: No Edema, No Clubbing, Cyanosis Skin: No Rash or Ulcers Neurological: Alert and Oriented x 3 Laboratory Results: 10/02/17 08:53 10/03/17 06:09 INR (Anticoag Therapy) 0.83 (0.77-1.02) 10/02/17 08:53 Total Bilirubin 0.80 mg/dL (0.2-1.0) 10/02/17 08:53 AST 27 U/L (13-39) 10/02/17 08:53 ALT 25 U/L (7-52) 10/02/17 08:53 Alkaline Phosphatase 56 U/L (34-104) 10/02/17 08:53 B-Natriuretic Peptide 17 pg/mL (-100) 10/02/17 08:53 Total Protein 8.1 g/dL (6.4-8.9) 10/02/17 08:53 Albumin 5.0 g/dL (3.2-5.2) 10/02/17 08:53 Globulin 3.1 g/dL (2-4) 10/02/17 08:53 Albumin/Globulin Ratio 1.6 (1-3) 10/02/17 08:53 TSH 3.60 mcIU/mL (0.34-5.60) 10/02/17 08:53 10/02/17 10/02/17 10/02/17 08:53 11:46 15:19 Troponin I 0.00 0.00 0.00 Diagnostic Imaging: CT head 10/02/2017: negative CXR today: no acute disease EKG Data: EKG admission 10/02/2017: Afib rate 93 bpm, early repolarization pattern, pvc's vs. tran beats repeat ekg Afib rate 70, otherwise unchanged, tran beat vs. pvc Assessment/Plan In summary, Mr. Wang is a 32 year old man with highly symptomatic atrial fibrillation of uncertain duration despite rate control in the setting of excess alcohol use and cocaine use now s/p SHELBY guided cardioversion this AM 10/03 - d/c diltiazem - Continue xarelto 20 mg po daily for 1 month post-cardioversion. Patient should not be discharged until a plan for him to obtain this medication is made - Ok to eat starting at noon Thank you for allowing me to participate in the cardiovascular care of this patient. Please do not hesitate to contact me with questions or concerns.
[2017-10-03] MEDS ORDERED: Rivaroxaban TAB(*) 20 MG TAB PO SCH (09:00)
--- NOTE | 2017-10-03 10:12 | TEE ---
Patient: LISSETT BAEZ [facility] Rec#: [id number] : 1985 Date: 10/03/2017 Age: 32y Height: 180.34 cm / 71.0 in Weight: 78.02 kg / 172.0 lbs Sex: M BSA: 1.98 Room#: 448 Admit Date#: 10/02/2017 Type: Inpatient Referring: Russell Hunter Performing: Damion Queen DO Reading: Damion Queen DO Administrative Intern: Isabel Jimenez RD,RDMS Transesophageal Echocardiogram Indication: AFIB BP: 111/69 HR: 75 Rhythm: A-Fib Findings History: Asthma, former smoker Technical Comments: The study quality is good. Left Ventricle: The left ventricular chamber size is normal. Left ventricular systolic function is at the lower limits of normal. The estimated ejection fraction is 50-55%. The assessment of diastolic function is non-diagnostic. Left Atrium: The left atrial chamber size is normal. There is no thrombus visualized in the left atrial appendage. Right Ventricle: The right ventricular chamber size and systolic function are within normal limits. Right Atrium: The right atrial cavity size is normal. There is a patent foramen ovale with predominant [id number] shunting. A patent foramen ovale is demonstrated by color Doppler. that is small and with no septal aneurysm noted Aortic Valve: The aortic valve is trileaflet. The leaflets are thin with normal excursion. There is no aortic stenosis or regurgitation present. Mitral Valve: The mitral valve leaflets appear normal. There is a trace of mitral regurgitation. There is no evidence of mitral stenosis. Tricuspid Valve: The tricuspid valve leaflets are normal. There is trace tricuspid regurgitation. Unable to estimate the right ventricular systolic pressure. There is no tricuspid stenosis. Pulmonic Valve: The pulmonic valve appears normal. There is no evidence of pulmonic regurgitation. Pericardium: There is no significant pericardial effusion. Aorta: The aortic root appears normal. There is no dilatation of the ascending aorta. There is no dilatation of the aortic arch. Pulmonary Artery: The main pulmonary artery appears normal. Venous: The inferior vena cava appears normal in size. The flow pattern of the pulmonary veins appear normal. 3 out of 4 well visualized The superior vena cava appears normal. SHELBY Procedures: All standard views were attempted within the limitations of patient tolerance and safety. History and physical as well as labs were reviewed. The patient was in a fasting state. Risks and benefits of the procedure, including alternatives, were discussed and written informed consent was obtained. The patient and/or their health care customer service representative expressed understanding of the procedure, risks and benefits. Baseline and continuous monitoring of blood pressure, heart rate, pulse oximetry and heart rhythm was performed throughout the procedure. The appropriate time-out procedure was performed as per [facility] protocol. The patient was placed in the left lateral decubitus position. The patient's posterior pharynx was anesthetized with 20ml of 2% viscous lidocaine. A total of 3 20mL vials were used The patient received IV Midazolam with a total dose of 4 mg The patient received IV Fentanyl with a total dose of 50 mcg An oral bite block was inserted for protection of oral dentition. The multiplane transesophageal echocardiogram probe was inserted through the posterior oropharynx and advanced into the esophagus without difficulty. Multiple 2D images were obtained of the heart and its related structures. Color flow Doppler was used for evaluation. Spectral Doppler was also used. The atrial septum was interrogated with color flow Doppler. At the conclusion of the procedure the probe was removed with continuous suction without complications. The patient tolerated the procedure with no apparent complications. Conclusions The left ventricular chamber size is normal. The estimated ejection fraction is normal at 50-55%. The left atrial chamber size is normal. There is no thrombus visualized in the left atrial appendage. The right ventricular chamber size and systolic function are within normal limits. No significant vallvular abnormalities noted. SHELBY followed by successful external electrical cardioversion No prior studies available for comparison at time of interpretation. Measurements Name Value Normal Range Ao root diameter (2D) 2.42 cm (2.1 - 3.5) Ascending Ao 2.74 cm (2.1 - 3.4) Name Value Normal Range MV E-wave Vmax 0.84 m/sec - MV deceleration time 90.88 msec - MV A-wave Vmax 0.02 m/sec - MV E:A ratio 50.37 ratio -
[2017-10-03 13:25] VITALS: BP 103/53
--- NOTE | 2017-10-03 13:38 | PN ---
Hospitalist Progress Note Date of Service: 10/03/17 All STI screenings negative. No need for antibiotic therapy. Patient should follow up with urology as an outpatient to evaluate dysuria. Remains clear for discharge to home today.
--- NOTE | 2017-10-03 20:47 | ED ---
Ludmila Uriostegui Thomas, scribed for Sukhwinder Rivero MD on 10/02/17 at 0907 . HPI Chest Pain - HPI Summary HPI Summary: The patient is a 32 year old male presents to the emergency department stating all his organs felt heavy and complaining of heart palpitations that began yesterday. He says that he took a pill at 22:00 last night that he thought was ecstasy. The patient additionally complains of facial numbness and muscle tension throughout his body. The patient also notes a history of cocaine use. - History of Current Complaint Chief Complaint: EDChestPainROMI Hx Obtained From: Patient Onset/Duration: Started Days Ago, Still Present Timing: Constant Pain Intensity: 10 Pain Scale Used: 0-10 Numeric Character: Heaviness Alleviating Factor(s): Nothing Associated Signs and Symptoms: Positive: Numbness - facial numbness, Palpitations - began 1 day ago, Other: - muscle tension - Additional Pertinent History Primary Care Physician: [id number] - Allergy/Home Medications Allergies/Adverse Reactions: Allergies Allergy/AdvReac Type Severity Reaction Status Date / Time peanut oil Allergy Hives/Diff. Verified 10/02/17 08:56 Breathing/I tching scallops Allergy Itching Verified 10/02/17 16:24 shrimp Allergy Itching Verified 10/02/17 16:24 Tree Nuts Allergy Hives/Diff. Verified 10/07/15 19:05 Breathing/I tching PMH/Surg Hx/FS Hx/Imm Hx Endocrine/Hematology History: Denies: Hx Diabetes Cardiovascular History: Denies: Hx Atrial Fibrillation Respiratory History: Reports: Hx Asthma GI History: Reports: Hx Diverticulosis Sensory History: Denies: Hx Contacts or Glasses, Hx Legally Blind, Hx Deafness, Hx Hearing Aid Opthamlomology History: Denies: Hx Contacts or Glasses, Hx Legally Blind - Surgical History Surgery Procedure, Year, and Place: Keloid removed on ventral side of neck. - Immunization History Date of Influenza Vaccine: did not get in Infectious Disease History: No Infectious Disease History: Denies: Traveled Outside the [place] in Last 30 Days - Family History Known Family History: Positive: Diabetes - grandmother, Other - Grandmother with cancer, DM and HTN. Mother with A-fib. - Social History Alcohol Use: Occasionally Hx Substance Use: Yes Substance Use Type: Reports: Marijuana Hx Tobacco Use: Yes Smoking Status (MU): Light Every Day Tobacco Smoker Review of Systems Positive: Palpitations - began 1 day ago Musculoskeletal: Other - muscle tension Positive: Numbness - facial numbness All Other Systems Reviewed And Are Negative: Yes Physical Exam - Summary Physical Exam Summary: Appearance: The patient is well-nourished in no acute distress and in no acute pain. Skin: The skin is warm and dry and skin color reflects adequate perfusion. HEENT: The head is normocephalic and atraumatic. The pupils are equal and reactive. The conjunctivae are clear and without drainage. Nares are patent and without drainage. Mouth reveals moist mucous membranes and the throat is without erythema and exudate. The external ears are intact. The ear canals are patent and without drainage. The tympanic membranes are intact. Neck: the neck is supple with full range of motion and non-tender. There are no carotid bruits. There is no neck vein distension. Respiratory: Chest is non-tender. Lungs are clear to auscultation and breath sounds are symmetrical and equal. Cardiovascular: Heart is irregular.~There is no murmur or rub auscultated.~ There is no peripheral edema and pulses are symmetrical and equal. Abdomen: The abdomen is soft and non-tender. There are normal bowel sounds heard in all four quadrants and there is no organomegaly palpated. Musculoskeletal: There is no back tenderness noted. Extremities are non-tender with full range of motion. There is good capillary refill. There is no peripheral edema or calf tenderness elicited. Neurological: Patient is alert and oriented to person, place and time. The patient has symmetrical motor strength in all four extremities. Cranial nerves are grossly intact. Deep tendon reflexes are symmetrical and equal in all four extremities. Psychiatric: The patient has an appropriate affect and does not exhibit any depression. Patient exhibits anxiety. Triage Information Reviewed: Yes Vital Signs On Initial Exam: Initial Vitals Temp Pulse Resp BP Pulse Ox 98.8 F 106 26 127/99 100 10/02/17 08:48 10/02/17 08:48 10/02/17 08:48 10/02/17 08:48 10/02/17 08:48 Vital Signs Reviewed: Yes Diagnostics - Vital Signs Vital Signs Temp Pulse Resp BP Pulse Ox 10/02/17 08:48 98.8 F 106 26 127/99 100 - Laboratory Lab Results: Lab Results 10/02/17 10/02/17 10/02/17 Range/Units 08:53 08:53 08:53 WBC (3.5-10.8) 10^3/ul RBC (4.0-5.4) 10^6/ul Hgb (14.0-18.0) g/dl Hct (42-52) % MCV (80-94) fL MCH (27-31) pg MCHC (31-36) g/dl RDW (10.5-15) % Plt Count (150-450) 10^3/ul MPV (7.4-10.4) um3 Neut % (Auto) (38-83) % Lymph % (Auto) (25-47) % Moore % (Auto) (0-7) % Eos % (Auto) (0-6) % Baso % (Auto) (0-2) % Absolute Neuts (auto) (1.5-7.7) 10^3/ul Absolute Lymphs (auto) (1.0-4.8) 10^3/ul Absolute Monos (auto) (0-0.8) 10^3/ul Absolute Eos (auto) (0-0.6) 10^3/ul Absolute Basos (auto) (0-0.2) 10^3/ul Absolute Nucleated RBC 10^3/ul Nucleated RBC % INR (Anticoag Therapy) 0.83 (0.77-1.02) D-Dimer, Quantitative < 200 (Less Than 230) ng/mL Sodium 135 (133-145) mmol/L Potassium 3.2 L (3.5-5.0) mmol/L Chloride 95 L (101-111) mmol/L Carbon Dioxide 26 (22-32) mmol/L Anion Gap 14 H (2-11) mmol/L BUN 10 (6-24) mg/dL Creatinine 1.29 H (0.67-1.17) mg/dL Est GFR ( Amer) 83.0 (>60) Est GFR (Non-Af Amer) 64.5 (>60) BUN/Creatinine Ratio 7.8 L (8-20) Glucose 99 (70-100) mg/dL Lactic Acid (0.5-2.0) mmol/L Calcium 10.1 (8.6-10.3) mg/dL Magnesium 2.0 (1.9-2.7) mg/dL Total Bilirubin 0.80 (0.2-1.0) mg/dL AST 27 (13-39) U/L ALT 25 (7-52) U/L Alkaline Phosphatase 56 (34-104) U/L Troponin I 0.00 (<0.04) ng/mL B-Natriuretic Peptide 17 ( - 100) pg/mL Total Protein 8.1 (6.4-8.9) g/dL Albumin 5.0 (3.2-5.2) g/dL Globulin 3.1 (2-4) g/dL Albumin/Globulin Ratio 1.6 (1-3) TSH 3.60 (0.34-5.60) mcIU/mL Urine Opiates Screen (None Detect) Ur Barbiturates Screen (None Detect) Ur Phencyclidine Scrn (None Detect) Ur Amphetamines Screen (None Detect) U Benzodiazepines Scrn (None Detect) Urine Cocaine Screen (None Detect) U Cannabinoids Screen (None Detect) Serum Alcohol < 10 (<10) mg/dL C.trachomatis (Amp Det) (Negative) Hepatitis C Antibody (Nonreactive) HIV 1&2 Antibody (Nonreactive) N.gonorrhoeae (Amp Det) (Negative) 10/02/17 10/02/17 10/02/17 Range/Units 08:53 08:53 08:53 WBC 6.7 (3.5-10.8) 10^3/ul RBC 5.64 H (4.0-5.4) 10^6/ul Hgb 16.6 (14.0-18.0) g/dl Hct 49 (42-52) % MCV 87 (80-94) fL MCH 29 (27-31) pg MCHC 34 (31-36) g/dl RDW 15 (10.5-15) % Plt Count 285 (150-450) 10^3/ul MPV 7 L (7.4-10.4) um3 Neut % (Auto) 41.2 (38-83) % Lymph % (Auto) 43.4 (25-47) % Moore % (Auto) 14.3 H (0-7) % Eos % (Auto) 0.8 (0-6) % Baso % (Auto) 0.3 (0-2) % Absolute Neuts (auto) 2.8 (1.5-7.7) 10^3/ul Absolute Lymphs (auto) 2.9 (1.0-4.8) 10^3/ul Absolute Monos (auto) 1.0 H (0-0.8) 10^3/ul Absolute Eos (auto) 0.1 (0-0.6) 10^3/ul Absolute Basos (auto) 0 (0-0.2) 10^3/ul Absolute Nucleated RBC 0 10^3/ul Nucleated RBC % 0.2 INR (Anticoag Therapy) (0.77-1.02) D-Dimer, Quantitative (Less Than 230) ng/mL Sodium (133-145) mmol/L Potassium (3.5-5.0) mmol/L Chloride (101-111) mmol/L Carbon Dioxide (22-32) mmol/L Anion Gap (2-11) mmol/L BUN (6-24) mg/dL Creatinine (0.67-1.17) mg/dL Est GFR ( Amer) (>60) Est GFR (Non-Af Amer) (>60) BUN/Creatinine Ratio (8-20) Glucose (70-100) mg/dL Lactic Acid 3.5 H* (0.5-2.0) mmol/L Calcium (8.6-10.3) mg/dL Magnesium (1.9-2.7) mg/dL Total Bilirubin (0.2-1.0) mg/dL AST (13-39) U/L ALT (7-52) U/L Alkaline Phosphatase (34-104) U/L Troponin I (<0.04) ng/mL B-Natriuretic Peptide ( - 100) pg/mL Total Protein (6.4-8.9) g/dL Albumin (3.2-5.2) g/dL Globulin (2-4) g/dL Albumin/Globulin Ratio (1-3) TSH (0.34-5.60) mcIU/mL Urine Opiates Screen (None Detect) Ur Barbiturates Screen (None Detect) Ur Phencyclidine Scrn (None Detect) Ur Amphetamines Screen (None Detect) U Benzodiazepines Scrn (None Detect) Urine Cocaine Screen (None Detect) U Cannabinoids Screen (None Detect) Serum Alcohol (<10) mg/dL C.trachomatis (Amp Det) (Negative) Hepatitis C Antibody Nonreactive (Nonreactive) HIV 1&2 Antibody Nonreactive (Nonreactive) N.gonorrhoeae (Amp Det) (Negative) 10/02/17 10/02/17 10/02/17 Range/Units 10:12 10:12 11:46 WBC (3.5-10.8) 10^3/ul RBC (4.0-5.4) 10^6/ul Hgb (14.0-18.0) g/dl Hct (42-52) % MCV (80-94) fL MCH (27-31) pg MCHC (31-36) g/dl RDW (10.5-15) % Plt Count (150-450) 10^3/ul MPV (7.4-10.4) um3 Neut % (Auto) (38-83) % Lymph % (Auto) (25-47) % Moore % (Auto) (0-7) % Eos % (Auto) (0-6) % Baso % (Auto) (0-2) % Absolute Neuts (auto) (1.5-7.7) 10^3/ul Absolute Lymphs (auto) (1.0-4.8) 10^3/ul Absolute Monos (auto) (0-0.8) 10^3/ul Absolute Eos (auto) (0-0.6) 10^3/ul Absolute Basos (auto) (0-0.2) 10^3/ul Absolute Nucleated RBC 10^3/ul Nucleated RBC % INR (Anticoag Therapy) (0.77-1.02) D-Dimer, Quantitative (Less Than 230) ng/mL Sodium (133-145) mmol/L Potassium (3.5-5.0) mmol/L Chloride (101-111) mmol/L Carbon Dioxide (22-32) mmol/L Anion Gap (2-11) mmol/L BUN (6-24) mg/dL Creatinine (0.67-1.17) mg/dL Est GFR ( Amer) (>60) Est GFR (Non-Af Amer) (>60) BUN/Creatinine Ratio (8-20) Glucose (70-100) mg/dL Lactic Acid (0.5-2.0) mmol/L Calcium (8.6-10.3) mg/dL Magnesium (1.9-2.7) mg/dL Total Bilirubin (0.2-1.0) mg/dL AST (13-39) U/L ALT (7-52) U/L Alkaline Phosphatase (34-104) U/L Troponin I 0.00 (<0.04) ng/mL B-Natriuretic Peptide ( - 100) pg/mL Total Protein (6.4-8.9) g/dL Albumin (3.2-5.2) g/dL Globulin (2-4) g/dL Albumin/Globulin Ratio (1-3) TSH (0.34-5.60) mcIU/mL Urine Opiates Screen None detected (None Detect) Ur Barbiturates Screen None detected (None Detect) Ur Phencyclidine Scrn None detected (None Detect) Ur Amphetamines Screen None detected (None Detect) U Benzodiazepines Scrn None detected (None Detect) Urine Cocaine Screen Presumptive positive H (None Detect) U Cannabinoids Screen Presumptive positive H (None Detect) Serum Alcohol (<10) mg/dL C.trachomatis (Amp Det) Negative (Negative) Hepatitis C Antibody (Nonreactive) HIV 1&2 Antibody (Nonreactive) N.gonorrhoeae (Amp Det) Negative (Negative) Result Diagrams: 10/02/17 08:53 10/03/17 06:09 Lab Statement: Any lab studies that have been ordered have been reviewed, and results considered in the medical decision making process. - Radiology CXR Xray Interpretation: No Acute Changes Radiology Interpretation Completed By: Radiologist - NO ACTIVE CARDIOPULMONARY DISEASE IS NOTED. Dr. Rivero has reviewed this report. - CT CT Brain CT Interpretation: No Acute Changes CT Interpretation Completed By: Radiologist - No intracranial mass or hemorrhage is noted. Dr. Rivero has reviewed this report. - EKG 08:42 Cardiac Rate: NL - at 93 bpm EKG Rhythm: Atrial Fibrillation Ectopy: PVCs EKG Interpretation: Afib, PVCs, and early repolarization Chest Pain Course/Dx - Course Course Of Treatment: Mr. Wnag came in with the C/O everything feels heavy. He was noted to be in A-fib and admitted to using cocaine the night before last. His W/U was otherwise negative and he is being admitted to the hospitalist to get converted tomorrow. - Diagnoses Provider Diagnoses: A-fib - Provider Notifications Discussed Care Of Patient With: Damion Queen Time Discussed With Above Provider: 11:30 Instructed by Provider To: Other - Dr. Queen, cardiology, recommends admission. Dr. Infante, hospitalist, admits the patient. Discharge - Discharge Plan Condition: Good Disposition: ADMITTED TO [facility] documentation as recorded by the Ludmila cancino Thomas accurately reflects the service I personally performed and the decisions made by me, Sukhwinder Rivero MD.
--- NOTE | 2017-10-04 02:47 | DS ---
CC: OPAL Trimble * DISCHARGE SUMMARY: DATE OF ADMISSION: 10/02/17 DATE OF DISCHARGE: 10/03/17 PRIMARY CARE DOCTOR: OPAL Trimble ATTENDING FOR THIS ADMISSION: Dr. Ezra Infante.* (DICTATED BY FATOUMATA STARK NP) MY ATTENDING FOR TODAY: Dr. Everardo Arteaga. HOSPITAL COURSE: This is a 32-year-old male patient, who presented to the emergency department with complaint of chest pain and fatigue and dizziness. He was highly symptomatic for approximately 24 hours before seeking medical assistance in the emergency department. The patient reported having this past Tuesday night drinking and doing some drugs that turned out to be cocaine positive on his urine sample. He was also found to be in rapid AFib with again being very highly symptomatic with chest pain. The patient was seen by Dr. Queen of Cardiology and at that time he recommended placing the patient on Cardizem 30 mg q.6 hours for weight control. The patient underwent a SHELBY and cardioversion today, 10/03/17. Again, the patient underwent cardioversion this morning approximately 9:00 a.m. He was initially in AFib at a rate of 70 prior to going into the procedure. He was successfully cardioverted and has been started on Xarelto. He will remain on Xarelto for at least the next 30 days and will follow back up with Cardiology. PHYSICAL EXAMINATION: The patient is awake, but somewhat sleepy from sedation from his procedure earlier. Vital Signs: Currently, blood pressure 98/59, heart rate 63, respiratory rate 16, satting 100% on room air, temperature is 97.6. HEENT: The patient is atraumatic and normocephalic. PERRLA with nonicteric sclerae. Neck: Supple, nontender. No JVD noted. No carotid bruits auscultated. He does have some scarring from a keloid that was removed on his right lateral portion of the neck. The wound is approximated and healed. No erythema noted. Cardiovascular: S1, S2 were present. Rate and rhythm are regular. Again, rate of approximately 60 to 65. Lungs are clear bilaterally to auscultation with no wheezing, rhonchi, or rales. Abdomen is soft, nontender , nondistended. Positive bowel sounds noted. Musculoskeletal: There is no clubbing, no cyanosis, no edema. He is neurologically intact with no gross focal deficits. LABORATORY DATA: Today, WBC 6.7, RBC 5.64, hemoglobin 16.6, hematocrit 49. Sodium 136, potassium 4.0, chloride 106, CO2 26, BUN 8, creatinine 0.99, GFR is 112.7, lactic acid is 0.7, and no other abnormal labs noted. Urine tox screen presented positive for cocaine and cannabinoids. Serology: HIV 1 and 2 antibodies are nonreactive. Hepatitis C is pending. Syphilis IgG is pending as well as GC, chlamydia RNA is also pending and are in lab currently. DISCHARGE PLAN: The patient will be discharged to home. He is in stable condition. All his questions were answered. He understands his need to stay on Xarelto for the next 30 days and until he follows back up with Cardiology. Also of important note, patient has stated some dysuria at admission. He did have cultures sent for GC, chlamydia, and syphilis which are still pending, should be ready by 2:00 p.m. this afternoon. The patient will be discharged pending those results this afternoon. If either those are positive screenings, he will be treated prior to leaving and will be instructed to follow up with his primary care doctor in the next week to 2 weeks, OPAL Trimble, also follow up with Dr. Queen in the next month from Cardiology. The patient was discharged in stable condition. All questions were answered. The patient stated understanding of his followup medications at the time of discharge. FATOUMATA STARK NP [id number]/[facility] #: [id number] [place]
== END 2017-10-03 14:28 | disposition home or self-care (01) ==
LOC: ED 08:41 → MEDTELE 14:23 → INTOOBSV 14:23 → EEVIPCON 14:23
PROVIDERS: ADMIT Internal Medicine; ATTEND Internal Medicine
DX: I48.91 Unspecified atrial fibrillation (principal); R07.9 Chest pain, unspecified; R94.4 Abnormal results of kidney function studies; R53.83 Other fatigue; R42 Dizziness and giddiness; K57.90 Diverticulosis of intestine, part unspecified, without perforation or abscess without bleeding; Q21.1 Atrial septal defect; Z79.01 Long term (current) use of anticoagulants; Z72.0 Tobacco use; Z72.89 Other problems related to lifestyle; F14.90 Cocaine use, unspecified, uncomplicated
CPT/HCPCS: 36415; 70450; 71045; 80048; 80053; 80307; 80320; 83605; 83735; 83880; 84443; 84484; 85025; 85379; 85610; 86592; 86703; 86803; 87491; 87591; 92960; 93005; 93312; 93325; 96374; 96376; 99156; 99157; 99284; A9270-GY; G0378; G0480; J1200; J2250; J2270; J2310; J3010

== ENCOUNTER 2019-01-22 11:51 | Emergency (ER) | payer MEDICAID, OTHER ==
[2019-01-22 12:57] LABS: Urine Appearance Clear; Urine Bilirubin Negative (Negative); Urine Blood Negative (Negative); Urine Color Yellow; Urine Glucose Negative (Negative); Urine Ketones Negative (Negative); Urine Nitrite Negative (Negative); Urine Protein Negative (Negative); Urine Specific Gravity 1.024 (1.010-1.030); Urine Urobilinogen Negative (Negative)
[2019-01-22] MEDS ORDERED: Azithromycin TAB* 250 MG PO ONE (13:24)
[2019-01-22] MEDS ORDERED: cefTRIAXone VIAL(*) 250 MG VIAL IM ONE (13:24)
[2019-01-22] MEDS ORDERED: Lidocaine 1%** 5 ML VIAL ONE ×2 (13:38)
[2019-01-22] MEDS ORDERED: Lidocaine 1%** 5 ML VIAL INJ ONE (13:42)
[2019-01-22 13:52] VITALS: BP 121/76
--- NOTE | 2019-01-22 13:58 | ED ---
GI/ HPI - HPI Summary HPI Summary: Patient is a 33-year-old otherwise healthy male presenting to the ED with concern for an STI. He states he has had an STI in the past and this feels similar. He is endorsing suprapubic tenderness with a small amount of green discharge from the penile area. Denies any scrotal or testicular pain bilaterally. Denies any fevers, sweats, chills. He states he is unsure who his partner was who had sexual intercourse with. He is unsure if they had an STI. He denies any sexual intercourse with anyone else since that time. Symptoms have been present times approximately one week. Denies any back pain. Denies any pain with intercourse. - History of Current Complaint Chief Complaint: EDUrogenitalProblems Time Seen by Provider: 01/22/19 12:14 Stated Complaint: POSS STI PER PT Hx Obtained From: Patient Onset/Duration: Started Hours Ago Timing: Constant Severity: Moderate Current Severity: Moderate Pain Intensity: 0 Additional Locations for Males: Penis Associated Signs and Symptoms: Positive: Negative Additional Signs & Symptoms: Positive: Penile Discharge, STD Alleviating Factor(s): Nothing - Additional Pertinent History Primary Care Physician: [id number] - Allergy/Home Medications Allergies/Adverse Reactions: Allergies Allergy/AdvReac Type Severity Reaction Status Date / Time peanut oil Allergy Hives/Diff. Verified 01/22/19 12:02 Breathing/I tching scallops Allergy Itching Verified 01/22/19 12:02 shrimp Allergy Itching Verified 01/22/19 12:02 Tree Nuts Allergy Hives/Diff. Verified 01/22/19 12:02 Breathing/I tching Home Medications: Home Medications NK [No Home Medications Reported] 01/22/19 [History Confirmed 01/22/19] PMH/Surg Hx/FS Hx/Imm Hx Previously Healthy: Yes Endocrine/Hematology History: Denies: Hx Diabetes, Hx Thyroid Disease Cardiovascular History: Denies: Hx Atrial Fibrillation, Hx Peripheral Vascular Disease Respiratory History: Reports: Hx Asthma GI History: Reports: Hx Diverticulosis Musculoskeletal History: Denies: Hx Arthritis Sensory History: Denies: Hx Contacts or Glasses, Hx Legally Blind, Hx Deafness, Hx Hearing Aid Opthamlomology History: Denies: Hx Contacts or Glasses, Hx Legally Blind Neurological History: Denies: Hx Headaches, Hx Seizures, Hx Transient Ischemic Attacks (TIA) - Surgical History Surgery Procedure, Year, and Place: Keloid removed on ventral side of neck. - Immunization History Date of Influenza Vaccine: did not get in Hx Pertussis Vaccination: No Immunizations Up to Date: Yes Infectious Disease History: No Infectious Disease History: Denies: Hx Clostridium Difficile, Hx Hepatitis, Hx Human Immunodeficiency Virus (HIV), Hx of Known/Suspected MRSA, Hx Shingles, Hx Tuberculosis, Traveled Outside the [place] in Last 30 Days - Family History Known Family History: Positive: Diabetes - grandmother, Other - Grandmother with cancer, DM and HTN. Mother with A-fib. - Social History Occupation: Employed Full-time Lives: With Family Alcohol Use: Occasionally Hx Substance Use: Yes Substance Use Type: Reports: Marijuana Substance Use Comment - Amount & Last Used: within 2 days Hx Tobacco Use: Yes Smoking Status (MU): Light Every Day Tobacco Smoker Review of Systems Constitutional: Negative Negative: Fever, Chills, Fatigue, Skin Diaphoresis Negative: Epistaxis, Dental Pain Negative: Palpitations, Chest Pain Negative: Shortness Of Breath, Cough Negative: Abdominal Pain, Vomiting, Diarrhea, Nausea Genitourinary: Negative Positive: no symptoms reported, see HPI Negative: Arthralgia, Myalgia Skin: Negative Neurological: Negative All Other Systems Reviewed And Are Negative: Yes Physical Exam Triage Information Reviewed: Yes Vital Signs On Initial Exam: Initial Vitals Temp Pulse Resp BP Pulse Ox 98.9 F 94 18 126/76 97 01/22/19 11:53 01/22/19 11:53 01/22/19 11:53 01/22/19 11:53 01/22/19 11:53 Vital Signs Reviewed: Yes Appearance: Positive: Well-Appearing Skin: Positive: Skin Color Reflects Adequate Perfusion Head/Face: Positive: Normal Head/Face Inspection Eyes: Positive: EOMI, Conjunctiva Clear Neck: Positive: Supple, No Lymphadenopathy Respiratory/Lung Sounds: Positive: Clear to Auscultation, Breath Sounds Present Cardiovascular: Positive: RRR, Pulses are Symmetrical in both Upper and Lower Extremities. Negative: Leg Edema Left, Leg Edema Right Musculoskeletal: Positive: Strength/ROM Intact Neurological: Positive: Sensory/Motor Intact, Alert, Oriented to Person Place, Time, Speech Normal Psychiatric: Positive: Affect/Mood Appropriate Diagnostics - Vital Signs Vital Signs Temp Pulse Resp BP Pulse Ox 01/22/19 13:48 97.8 F 74 18 121/76 100 01/22/19 11:53 98.9 F 94 18 126/76 97 - Laboratory Lab Results: Lab Results 01/22/19 Range/Units 12:45 Urine Color Yellow Urine Appearance Clear Urine pH 6.0 (5-9) Ur Specific [place] 1.024 (1.010-1.030) Urine Protein Negative (Negative) Urine Ketones Negative (Negative) Urine Blood Negative (Negative) Urine Nitrate Negative (Negative) Urine Bilirubin Negative (Negative) Urine Urobilinogen Negative (Negative) Ur Leukocyte Esterase Negative (Negative) Urine Glucose Negative (Negative) Lab Statement: Any lab studies that have been ordered have been reviewed, and results considered in the medical decision making process. GIGU Course/Dx - Course Course Of Treatment: Presents to the ED with concern for STI. He endorses some green discharge from the penis. Denies any testicular pain bilaterally. Denies any fevers, sweats, chills. He states he had STI is in the past and this feels similar. He is requesting to be treated. Ceftriaxone and Zithromax given. We will send out GC chlamydia. UA obtained and is negative. - Diagnoses Differential Diagnoses - Male: Other - UA, GC chlamydia, STI Provider Diagnoses: Penile discharge Discharge - Sign-Out/Discharge Documenting (check all that apply): Patient Departure Patient Received Moderate/Deep Sedation with Procedure: No - Discharge Plan Condition: Stable Disposition: HOME Patient Education Materials: Sexually Transmitted Diseases (ED) Referrals: Byron Laguerre NP [Primary Care Provider] - Additional Instructions: Please call in a few days to request results no unprotected sex 7 days Please tell all any known partners - Billing Disposition and Condition Condition: STABLE Disposition: Home
[2019-01-23 12:45] LABS: Neisseria gonorrhoeae (GC) RNA Negative (Negative)
== END 2019-01-22 13:48 | disposition home or self-care (01) ==
LOC: ED 11:51
DX: R36.9 Urethral discharge, unspecified (principal); Z91.018 Allergy to other foods; Z91.013 Allergy to seafood; F17.200 Nicotine dependence, unspecified, uncomplicated
CPT/HCPCS: 81003; 87491; 87591; 96372; 99283; A9270-GY; J0696

== ENCOUNTER 2019-01-29 14:51 | Emergency (ER) | payer SELFPAY ==
[2019-01-29] MEDS ORDERED: DOXYcycline CAP(*) 100 MG PO ONE (15:47)
[2019-01-29] MEDS ORDERED: Ibuprofen TAB* 600 MG PO ONE (15:54)
[2019-01-29] MEDS ORDERED: Acetaminophen TAB* 325 MG PO ONE (15:54)
--- NOTE | 2019-01-29 16:01 | ED ---
GI/ HPI - HPI Summary HPI Summary: Patient complains of persistent penile discharge, pain or burning with urination 1.5 weeks. Seen here last week for same given Rocephin 500 mg IM and azithromycin 1000 g by mouth. Denies improvement in symptoms. Cultures from prior visit to ER negative for gonorrhea or chlamydia. Patient has single female partner. Patient states sexual partner was not treated. Denies fever, cough, sore throat, CV, SOB, N/V/D, abdominal pain, change in urine, change in BM, testicular symptoms. Medical history is paroxysmal A. fib. - History of Current Complaint Chief Complaint: EDGeneral Time Seen by Provider: 01/29/19 15:29 Stated Complaint: WORSENING SYMPTOMS PER PT Hx Obtained From: Patient Onset/Duration: Started Days Ago Timing: Constant Severity: Moderate Current Severity: Moderate Pain Intensity: 5 Location of Pain: Groin Pain Characteristics: Burning Associated Signs and Symptoms: Positive: Dysuria Additional Signs & Symptoms: Positive: Penile Discharge - Additional Pertinent History Primary Care Physician: NAVEEN - Allergy/Home Medications Allergies/Adverse Reactions: Allergies Allergy/AdvReac Type Severity Reaction Status Date / Time peanut oil Allergy Hives/Diff. Verified 01/29/19 15:03 Breathing/I tching scallops Allergy Itching Verified 01/29/19 15:03 shrimp Allergy Itching Verified 01/29/19 15:03 Tree Nuts Allergy Hives/Diff. Verified 01/29/19 15:03 Breathing/I tching PMH/Surg Hx/FS Hx/Imm Hx Endocrine/Hematology History: Denies: Hx Diabetes, Hx Thyroid Disease Cardiovascular History: Denies: Hx Atrial Fibrillation, Hx Peripheral Vascular Disease Respiratory History: Reports: Hx Asthma GI History: Reports: Hx Diverticulosis Musculoskeletal History: Denies: Hx Arthritis Sensory History: Denies: Hx Contacts or Glasses, Hx Legally Blind, Hx Deafness, Hx Hearing Aid Opthamlomology History: Denies: Hx Contacts or Glasses, Hx Legally Blind Neurological History: Denies: Hx Headaches, Hx Seizures, Hx Transient Ischemic Attacks (TIA) - Surgical History Surgery Procedure, Year, and Place: Keloid removed on ventral side of neck. - Immunization History Date of Influenza Vaccine: did not get in Infectious Disease History: No Infectious Disease History: Denies: Hx Clostridium Difficile, Hx Hepatitis, Hx Human Immunodeficiency Virus (HIV), Hx of Known/Suspected MRSA, Hx Shingles, Hx Tuberculosis, Traveled Outside the [place] in Last 30 Days - Family History Known Family History: Positive: Diabetes - grandmother, Other - Grandmother with cancer, DM and HTN. Mother with A-fib. - Social History Alcohol Use: Occasionally Hx Substance Use: Yes Substance Use Type: Reports: Marijuana Substance Use Comment - Amount & Last Used: within 2 days Hx Tobacco Use: Yes Smoking Status (MU): Light Every Day Tobacco Smoker Review of Systems Constitutional: Negative Eyes: Negative ENT: Negative Cardiovascular: Negative Respiratory: Negative Gastrointestinal: Negative Positive: burning, discharge Musculoskeletal: Negative Skin: Negative Neurological: Negative Psychological: Normal All Other Systems Reviewed And Are Negative: Yes Physical Exam Triage Information Reviewed: Yes Vital Signs On Initial Exam: Initial Vitals Temp Pulse Resp BP Pulse Ox 98.6 F 79 16 133/89 98 01/29/19 15:01 01/29/19 15:01 01/29/19 15:01 01/29/19 15:01 01/29/19 15:01 Vital Signs Reviewed: Yes Appearance: Positive: Well-Appearing Skin: Positive: Warm Head/Face: Positive: Normal Head/Face Inspection Eyes: Positive: Normal Neck: Positive: Supple Respiratory/Lung Sounds: Positive: Clear to Auscultation Cardiovascular: Positive: Normal Abdomen Description: Positive: Nontender Male Genital Exam: Positive: Normal Genitalia Musculoskeletal: Positive: Normal Neurological: Positive: Normal Psychiatric: Positive: Normal AVPU Assessment: Alert - Bharati Coma Scale Best Eye Response: 4 - Spontaneous Best Motor Response: 6 - Obeys Commands Best Verbal Response: 5 - Oriented Coma Scale Total: 15 Diagnostics - Vital Signs Vital Signs Temp Pulse Resp BP Pulse Ox 01/29/19 15:01 98.6 F 79 16 133/89 98 - Laboratory Lab Statement: Any lab studies that have been ordered have been reviewed, and results considered in the medical decision making process. GIGU Course/Dx - Course Course Of Treatment: Patient complains of persistent penile discharge, pain or burning with urination 1.5 weeks. Seen here last week for same given Rocephin 500 mg IM and azithromycin 1000 g by mouth. Denies improvement in symptoms. Cultures from prior visit to ER negative for gonorrhea or chlamydia. Patient has single female partner. Patient states sexual partner was not treated. Denies fever, cough, sore throat, CV, SOB, N/V/D, abdominal pain, change in urine, change in BM, testicular symptoms. Medical history is paroxysmal A. fib. Vital signs within normal limits. Cultures from prior visit negative for gonorrhea and chlamydia. Possible prostatitis. Patient given course of doxycycline twice a day 10 days. - Diagnoses Provider Diagnoses: Urethritis Discharge - Sign-Out/Discharge Documenting (check all that apply): Patient Departure Patient Received Moderate/Deep Sedation with Procedure: No - Discharge Plan Condition: Stable Disposition: HOME Prescriptions: DOXYcycline CAP(*) [DOXYcycline 100MG CAP(*)] 100 mg PO BID 10 Days #20 cap Patient Education Materials: Nonspecific Urethritis in Men (ED) Referrals: Byron Laguerre NP [Primary Care Provider] - Additional Instructions: Take antibiotics as directed. Avoid sex until symptoms resolve. Make sure sexual partner is treated as well. Return to the ED for any new or worsening symptoms. - Billing Disposition and Condition Condition: STABLE Disposition: Home
[2019-01-29 16:44] LABS: Urine Appearance Cloudy; Urine Bacteria Absent (Absent); Urine Bilirubin Negative (Negative); Urine Blood Negative (Negative); Urine Color Amber; Urine Glucose Negative (Negative); Urine Ketones 2+ (Negative); Urine Nitrite Negative (Negative); Urine Protein 1+(30 mg/dL) (Negative); Urine Red Blood Cell 1+(3-5/hpf) (Absent); Urine Specific Gravity 1.035 (1.010-1.030); Urine Squamous Epithelial Cell Present (Absent); Urine Urobilinogen Negative (Negative); Urine White Blood Cell Trace(0-5/hpf) (Absent)
[2019-01-29 16:47] VITALS: BP 122/64
[2019-01-29 17:23] LABS: HIV 4th Generation Negative (Negative)
[2019-01-30 13:06] LABS: Neisseria gonorrhoeae (GC) RNA Negative (Negative)
== END 2019-01-29 16:30 | disposition home or self-care (01) ==
LOC: ED 14:51
DX: N34.2 Other urethritis (principal); R30.0 Dysuria; F17.210 Nicotine dependence, cigarettes, uncomplicated
CPT/HCPCS: 36415; 81003; 81015; 87086; 87389; 87491; 87591; 99282; A9270-GY

== ENCOUNTER 2019-04-07 19:28 | Emergency (ER) | payer SELFPAY ==
[2019-04-07] MEDS ORDERED: Morphine 4 MG/ML VIAL (1 ml) 4 MG/ML VIAL IV ONE (19:53)
[2019-04-07] MEDS ORDERED: Ondansetron INJ* 2 MG/ML VIAL IV ONE (19:53)
[2019-04-07] MEDS ORDERED: NS 0.9% 1000 ML** 1,000 ML IV ONE (19:53)
--- NOTE | 2019-04-07 19:59 | ED ---
Abdominal Pain/Male - HPI Summary HPI Summary: This patient is a 33 year old male presenting to [facility] with a chief complaint of abdominal pain. The abdominal pain is diffuse and intermittent, and he reports N/V/D, bilateral flank pain since 04/05/19. He states there was blood in his stool. Pt denies known fever. Pt wth hx of diverticulosis/diverticulitis, AFIB. He rates his pain 6/10 in severity. - History of Current Complaint Chief Complaint: EDAbdPain Stated Complaint: ABD AND BACK PAIN PER PT Time Seen by Provider: 04/07/19 19:47 Hx Obtained From: Patient Onset/Duration: Lasting Days Pain Intensity: 6 Pain Scale Used: 0-10 Numeric Location: Diffuse - Allergies/Home Medications Allergies/Adverse Reactions: Allergies Allergy/AdvReac Type Severity Reaction Status Date / Time peanut oil Allergy Hives/Diff. Verified 04/07/19 20:13 Breathing/I tching scallops Allergy Itching Verified 04/07/19 20:13 shrimp Allergy Itching Verified 04/07/19 20:13 Tree Nuts Allergy Hives/Diff. Verified 04/07/19 20:13 Breathing/I tching PMH/Surg Hx/FS Hx/Imm Hx Endocrine/Hematology History: Denies: Hx Diabetes, Hx Thyroid Disease Cardiovascular History: Denies: Hx Atrial Fibrillation, Hx Peripheral Vascular Disease Respiratory History: Reports: Hx Asthma GI History: Reports: Hx Diverticulosis Musculoskeletal History: Denies: Hx Arthritis Sensory History: Denies: Hx Contacts or Glasses, Hx Legally Blind, Hx Deafness, Hx Hearing Aid Opthamlomology History: Denies: Hx Contacts or Glasses, Hx Legally Blind Neurological History: Denies: Hx Headaches, Hx Seizures, Hx Transient Ischemic Attacks (TIA) - Surgical History Surgery Procedure, Year, and Place: Keloid removed on ventral side of neck. - Immunization History Date of Influenza Vaccine: did not get in Infectious Disease History: No Infectious Disease History: Denies: Hx Clostridium Difficile, Hx Hepatitis, Hx Human Immunodeficiency Virus (HIV), Hx of Known/Suspected MRSA, Hx Shingles, Hx Tuberculosis, Traveled Outside the [place] in Last 30 Days - Family History Known Family History: Positive: Diabetes - grandmother, Other - Grandmother with cancer, DM and HTN. Mother with A-fib. - Social History Alcohol Use: Occasionally Hx Substance Use: Yes Substance Use Type: Reports: Marijuana Substance Use Comment - Amount & Last Used: within 2 days Hx Tobacco Use: Yes Smoking Status (MU): Light Every Day Tobacco Smoker Review of Systems Positive: Abdominal Pain, Vomiting, Diarrhea, Nausea Positive: flank pain, other - Blood in stool All Other Systems Reviewed And Are Negative: Yes Physical Exam - Summary Physical Exam Summary: Constitutional: Well-developed, Well-nourished, Alert. (-) Distressed Skin: Warm, Dry HENT: Normocephalic; Atraumatic Eyes: Conjunctiva normal Neck: Musculoskeletal ROM normal neck. (-) JVD, (-) Stridor, (-) Tracheal deviation Cardio: Rhythm regular, rate normal, Heart sounds normal; Intact distal pulses; The pedal pulses are 2+ and symmetric. Radial pulses are 2+ and symmetric. (-) Murmur Pulmonary/Chest wall: Effort normal. (-) Respiratory distress, (-) Wheezes, (-) Rales Abd: Soft, Diffuse abdominal tenderness worse in the LLQ, (-) Distension, voluntary Guarding, (-) Rebound Musculoskeletal: (-) Edema Lymph: (-) Cervical adenopathy Neuro: Alert, Oriented x3 Psych: Mood and affect Normal Triage Information Reviewed: Yes Vital Signs On Initial Exam: Initial Vitals Temp Pulse Resp BP Pulse Ox 98.7 F 72 16 120/88 98 04/07/19 19:35 04/07/19 19:35 04/07/19 19:35 04/07/19 19:35 04/07/19 19:35 Vital Signs Reviewed: Yes Diagnostics - Vital Signs Vital Signs Temp Pulse Resp BP Pulse Ox 04/07/19 19:35 98.7 F 72 16 120/88 98 - Laboratory Result Diagrams: 04/07/19 20:01 04/07/19 20:01 Lab Statement: Any lab studies that have been ordered have been reviewed, and results considered in the medical decision making process. Abdominal Pain Male Course/Dx - Course Course Of Treatment: Patient is here with left lower quadrant pain, vomiting, chills. Patient has a history of perforated diverticulitis in the past. Patient had a CBC, CMP, lipase performed which were grossly unremarkable. Patient was signed out to oncoming physician prior to CT scan results. - Diagnoses Provider Diagnoses: Diverticulitis Discharge ED - Sign-Out/Discharge Documenting (check all that apply): Sign-Out Patient Signing out patient TO: Sukhwinder Hester - At shift change [address] Abd/Pel Patient Received Moderate/Deep Sedation with Procedure: No - Discharge Plan Condition: Good Disposition: HOME Prescriptions: Amoxicillin/Clavulanate TAB* [Augmentin TAB 875*] 875 mg PO BID 10 Days #20 tab Ondansetron ODT TAB* [Zofran 4 MG Odt TAB*] 8 mg PO Q6H PRN #12 tab.odt PRN Reason: Nausea oxyCODONE/Acetamin 5/325 MG* [Percocet 5/325 TAB*] 2 tab PO Q4H PRN #20 tab MDD 6 PRN Reason: Pain - Moderate Patient Education Materials: Diverticulitis (ED) Forms: *Work Release Referrals: Byron Laguerre, [facility] [Primary Care Provider] - 3 Days (if not improving) Additional Instructions: Please follow up with your primary care provider within the next 2-3 days. Return to the emergency department with any new or worsening symptoms. - Billing Disposition and Condition Condition: GOOD Disposition: Home - Attestation Statements Document Initiated by Lauraibe: Yes Documenting Lauraibe: Ezra Wilson Provider For Whom Eusebia is Documenting (Include Credential): Ron Aviles MD Scribe Attestation: Ezra Uriostegui scribed for Ron Aviles MD on 04/10/19 at 1130. Scribe Documentation Reviewed: Yes Provider Attestation: The documentation as recorded by the Ezra cancino accurately reflects the service I personally performed and the decisions made by Ron cavazos MD Status of Scribe Document: Viewed
[2019-04-07 20:08] LABS: ABS Lymphocytes 1.1 10^3/ul (1.0-4.8); ABS Monocytes 0.6 10^3/ul (0-0.8); ABS Neutrophils 5.7 10^3/ul (1.5-7.7); Eosinophil % 0.5 %; Hematocrit 45 % (42-52); Hemoglobin 15.4 g/dL (14.0-18.0); Lymphocyte % 14.9 %; Mean Corpuscular HGB Conc 34 g/dL (31-36); Mean Corpuscular Hemoglobin 31 pg (27-31); Mean Corpuscular Volume 90 fL (80-94); Mean Platelet Volume 7.4 fL (7.4-10.4); Nucleated Red Blood Cells % 0.1; Platelet Count 221 10^3/uL (150-450); Red Blood Count 5.02 10^6 /uL (4.18-5.48); Red Cell Distribution Width 14 % (10-15); White Blood Count 7.5 10^3/uL (3.5-10.8)
[2019-04-07 20:13] LABS: Urine Appearance Clear; Urine Bilirubin Negative (Negative); Urine Blood Negative (Negative); Urine Color Yellow; Urine Glucose Negative (Negative); Urine Ketones Negative (Negative); Urine Nitrite Negative (Negative); Urine Protein Negative (Negative); Urine Specific Gravity 1.026 (1.010-1.030); Urine Urobilinogen Negative (Negative)
[2019-04-07 20:23] LABS: Albumin 4.2 g/dL (3.2-5.2); Albumin/Globulin Ratio 1.8 (1-3); BUN/Creatinine Ratio 7.7 (8-20); Calcium 9.3 mg/dL (8.6-10.3); EGFR African American 99.5 (>60); EGFR Non-African American 82.2 (>60); Globulin 2.4 g/dL (2-4); Potassium 3.4 mmol/L (3.5-5.0); Total Bilirubin 0.4 mg/dL (0.2-1.0); Total Protein 6.6 g/dL (6.4-8.9)
[2019-04-07] MEDS ORDERED: Iohexol 300* (CONTRAST) 10 ML SDV IV ONE (20:37)
--- NOTE | 2019-04-07 22:30 | ED ---
Progress - Progress Note Progress Note: Pt is a signout from Dr. Aviles at 2200 on 04/07/[address] a/p. - Results/Orders Results/Orders: CT a/p shows: 1. Wall thickening in the mid and distal transverse colon, suggestive of colitis , but diverticulitis not excluded. Additional wall thickening versus artifact from under distention in left and proximal sigmoid colon. 2. Diverticulosis coli ED physician has reviewed this report. Course/Dx - Course Course Of Treatment: Pt is a signout from Dr. Aviles at 2200 on 04/07/[address] a/p. CT a/p shows: 1. Wall thickening in the mid and distal transverse colon, suggestive of colitis, but diverticulitis not excluded. Additional wall thickening versus artifact from under distention in left and proximal sigmoid colon. 2. Diverticulosis coli. While not completely diagnostic for diverticulitis on CT, given pt's past h/o complicated diverticulitis I believe it would be prudent to treat him presumptively for early diverticulitis. Pt will be d/c'ed with dx of diverticulitis. He is stable and agreeable with this plan. - Diagnoses Provider Diagnoses: Diverticulitis Discharge ED - Sign-Out/Discharge Documenting (check all that apply): Patient Departure, Receiving Sign-Out Receiving patient FROM: Ron Aviles Patient Received Moderate/Deep Sedation with Procedure: No - Discharge Plan Condition: Good Disposition: HOME Prescriptions: Amoxicillin/Clavulanate TAB* [Augmentin TAB 875*] 875 mg PO BID 10 Days #20 tab Ondansetron ODT TAB* [Zofran 4 MG Odt TAB*] 8 mg PO Q6H PRN #12 tab.odt PRN Reason: Nausea oxyCODONE/Acetamin 5/325 MG* [Percocet 5/325 TAB*] 2 tab PO Q4H PRN #20 tab MDD 6 PRN Reason: Pain - Moderate Patient Education Materials: Diverticulitis (ED) Forms: *Work Release Referrals: Byron Laguerre NP [Primary Care Provider] - 3 Days (if not improving) Additional Instructions: Please follow up with your primary care provider within the next 2-3 days. Return to the emergency department with any new or worsening symptoms. - Billing Disposition and Condition Condition: GOOD Disposition: Home - Attestation Statements Document Initiated by Scribe: Yes Documenting Scribe: Trang Carr Provider For Whom Lauraibdoug is Documenting (Include Credential): Sukhwinder Hester MD. Scribe Attestation: Trang Uriostegui, jaydened for Sukhwinder Hester MD. on 04/08/19 at 1845. Scribe Documentation Reviewed: Yes Provider Attestation: The documentation as recorded by the scribe, Trang Carr accurately reflects the service I personally performed and the decisions made by me, Sukhwinder Hester MD. Status of Scribe Document: Viewed
[2019-04-07] MEDS ORDERED: oxyCODONE/Acetamin 5/325 MG* TAB PO ONE (22:56)
[2019-04-07] MEDS ORDERED: Amoxicillin/Clavulanate TAB* 875 MG PO ONE (22:56)
[2019-04-07 23:58] VITALS: BP 127/81
== END 2019-04-07 23:32 | disposition home or self-care (01) ==
LOC: ED 19:28
DX: K57.32 Diverticulitis of large intestine without perforation or abscess without bleeding (principal)
CPT/HCPCS: 36415; 74177; 80053; 81003; 83690; 85025; 96361; 96374; 96375; 99283; A9270-GY; J2270; J2405; Q9967

== ENCOUNTER 2019-04-22 12:32 | Emergency (ER) | payer SELFPAY ==
--- NOTE | 2019-04-22 13:46 | ED ---
GI/ HPI - HPI Summary HPI Summary: This patient is a 33 year old M presenting to [facility] with a chief complaint of burning during urination since 2-3 days. Per triage, the patient rates the pain 4/10 in severity. Patient reports penile discharge. Patient denies back pain. Pt reports that he is sexually active. - History of Current Complaint Chief Complaint: EDUrogenitalProblems Time Seen by Provider: 04/22/19 13:33 Stated Complaint: BURNING PAIN ON URINATION PER PT Hx Obtained From: Patient Severity: Moderate Current Severity: Moderate Pain Intensity: 4 Pain Characteristics: Burning Associated Signs and Symptoms: Positive: Dysuria. Negative: Other: - back pain Additional Signs & Symptoms: Positive: Penile Discharge Aggravating Factor(s): Urination Alleviating Factor(s): Nothing - Additional Pertinent History Primary Care Physician: NAVEEN - Allergy/Home Medications Allergies/Adverse Reactions: Allergies Allergy/AdvReac Type Severity Reaction Status Date / Time peanut oil Allergy Hives/Diff. Verified 04/22/19 12:36 Breathing/I tching scallops Allergy Itching Verified 04/22/19 12:36 shrimp Allergy Itching Verified 04/22/19 12:36 Tree Nuts Allergy Hives/Diff. Verified 04/22/19 12:36 Breathing/I tching PMH/Surg Hx/FS Hx/Imm Hx Endocrine/Hematology History: Denies: Hx Diabetes, Hx Thyroid Disease Cardiovascular History: Denies: Hx Atrial Fibrillation, Hx Peripheral Vascular Disease Respiratory History: Reports: Hx Asthma GI History: Reports: Hx Diverticulosis Musculoskeletal History: Denies: Hx Arthritis Sensory History: Denies: Hx Contacts or Glasses, Hx Legally Blind, Hx Deafness, Hx Hearing Aid Opthamlomology History: Denies: Hx Contacts or Glasses, Hx Legally Blind Neurological History: Denies: Hx Headaches, Hx Seizures, Hx Transient Ischemic Attacks (TIA) - Surgical History Surgery Procedure, Year, and Place: Keloid removed on ventral side of neck. - Immunization History Date of Influenza Vaccine: did not get in Infectious Disease History: No Infectious Disease History: Denies: Hx Clostridium Difficile, Hx Hepatitis, Hx Human Immunodeficiency Virus (HIV), Hx of Known/Suspected MRSA, Hx Shingles, Hx Tuberculosis, Traveled Outside the [place] in Last 30 Days - Family History Known Family History: Positive: Diabetes - grandmother, Other - Grandmother with cancer, DM and HTN. Mother with A-fib. - Social History Alcohol Use: Occasionally Alcohol Amount: couple beers twice a week Hx Substance Use: Yes Substance Use Type: Reports: Marijuana Substance Use Comment - Amount & Last Used: within 2 days Hx Tobacco Use: Yes Smoking Status (MU): Light Every Day Tobacco Smoker Review of Systems Positive: burning, discharge Negative: Other - back pain All Other Systems Reviewed And Are Negative: Yes Physical Exam - Summary Physical Exam Summary: Appearance: The patient is well-nourished in no acute distress and in no acute pain. Skin: The skin is warm and dry, and skin color reflects adequate perfusion. HEENT: The head is normocephalic and atraumatic. The pupils are equal and reactive. The conjunctivae are clear and without drainage. Nares are patent and without drainage. Mouth reveals moist mucous membranes, and the throat is without erythema and exudate. The external ears are intact. The ear canals are patent and without drainage. The tympanic membranes are intact. Neck: The neck is supple with full range of motion and non-tender. There are no carotid bruits. There is no neck vein distension. Respiratory: Chest is non-tender. Lungs are clear to auscultation and breath sounds are symmetrical and equal. Cardiovascular: Heart is regular rate and rhythm. There is no murmur or rub auscultated. There is no peripheral edema and pulses are symmetrical and equal. Abdomen: The abdomen is soft and non-tender. There are normal bowel sounds heard in all four quadrants and there is no organomegaly palpated. Musculoskeletal: There is no back tenderness noted. Extremities are non-tender with full range of motion. There is good capillary refill. There is no peripheral edema or calf tenderness elicited. Neurological: Patient is alert and oriented to person, place and time. The patient has symmetrical motor strength in all four extremities. Cranial nerves are grossly intact. Deep tendon reflexes are symmetrical and equal in all four extremities. Psychiatric: The patient has an appropriate affect and does not exhibit any anxiety or depression. Triage Information Reviewed: Yes Vital Signs On Initial Exam: Initial Vitals Temp Pulse Resp BP Pulse Ox 98.3 F 78 14 117/70 97 04/22/19 12:34 04/22/19 12:34 04/22/19 12:34 04/22/19 12:34 04/22/19 12:34 Vital Signs Reviewed: Yes Diagnostics - Vital Signs Vital Signs Temp Pulse Resp BP Pulse Ox 04/22/19 12:34 98.3 F 78 14 117/70 97 - Laboratory Lab Statement: Any lab studies that have been ordered have been reviewed, and results considered in the medical decision making process. Re-Evaluation - Re-Evaluation First Eval Re-Evaluation Time: 15:11 Comment: Discussed results with pt. GIGU Course/Dx - Course Course Of Treatment: Felipe Maruqez presents with some dysuria without frequency, urgency or, incomplete voiding. He's had no back pain or fevers. He has not noted any discharge but admits to multiple partners and unprotected intercourse. He is heterosexual. His UA was unremarkable and I sent it for GC and chlamydia. - Diagnoses Provider Diagnoses: Urethritis Discharge ED - Sign-Out/Discharge Documenting (check all that apply): Patient Departure - Discharge Patient Received Moderate/Deep Sedation with Procedure: No - Discharge Plan Condition: Stable Disposition: HOME Patient Education Materials: Gonorrhea (ED) Referrals: Byron Laguerre NP [Primary Care Provider] - 3 Days Additional Instructions: Follow up with primary care provider in 2-3 days. RETURN TO THE ED FOR ANY NEW OR WORSENING SYMPTOMS. - Billing Disposition and Condition Condition: STABLE Disposition: Home - Attestation Statements Document Initiated by Eusebia: Yes Documenting Scribe: Maddy Lazar Provider For Whom Eusebia is Documenting (Include Credential): Sukhwinder Rivero MD Scribe Attestation: Maddy Uriostegui, scribed for Sukhwinder Rivero MD on 04/22/19 at 2022. Scribe Documentation Reviewed: Yes Provider Attestation: The documentation as recorded by the Maddy cancino accurately reflects the service I personally performed and the decisions made by me, Sukhwinder Rivero MD Status of Scribe Document: Viewed
[2019-04-22 14:27] LABS: Urine Appearance Clear; Urine Bilirubin Negative (Negative); Urine Blood Negative (Negative); Urine Color Yellow; Urine Glucose Negative (Negative); Urine Ketones Negative (Negative); Urine Nitrite Negative (Negative); Urine Protein Negative (Negative); Urine Urobilinogen Negative (Negative)
[2019-04-22] MEDS ORDERED: cefTRIAXone VIAL(*) 250 MG VIAL IM ONE (14:58)
[2019-04-22] MEDS ORDERED: Azithromycin TAB* 250 MG PO ONE (15:10)
[2019-04-22] MEDS ORDERED: Lidocaine 1% MPF ** 5 ML VIAL IM ONE (15:10)
[2019-04-22 15:34] VITALS: BP 115/72
[2019-04-23 14:28] LABS: Chlamydia trachomatis NAA Negative (Negative); Neisseria gonorrhoeae (GC) NAA Negative (Negative)
== END 2019-04-22 15:30 | disposition home or self-care (01) ==
LOC: ED 12:32
DX: N34.2 Other urethritis (principal); J45.909 Unspecified asthma, uncomplicated; F17.200 Nicotine dependence, unspecified, uncomplicated
CPT/HCPCS: 81003; 87491; 87591; 96372; 99282; A9270-GY; J0696

== ENCOUNTER 2019-09-20 10:29 | Emergency (ER) | payer SELFPAY ==
[2019-09-20] MEDS ORDERED: Azithromycin TAB* 250 MG PO ONE (11:59)
--- NOTE | 2019-09-20 11:59 | ED ---
Complaint/Male - History of Current Complaint Chief Complaint: EDUrogenitalProblems Time Seen by Provider: 09/20/19 11:34 Hx Obtained From: Patient Onset/Duration: Gradual Onset Timing: Constant - Allergies/Home Medications Allergies/Adverse Reactions: Allergies Allergy/AdvReac Type Severity Reaction Status Date / Time peanut oil Allergy Hives/Diff. Verified 09/20/19 10:35 Breathing/I tching scallops Allergy Itching Verified 09/20/19 10:35 shrimp Allergy Itching Verified 09/20/19 10:35 Tree Nuts Allergy Hives/Diff. Verified 09/20/19 10:35 Breathing/I tching PMH/Surg Hx/FS Hx/Imm Hx Endocrine/Hematology History: Denies: Hx Diabetes, Hx Thyroid Disease Cardiovascular History: Denies: Hx Atrial Fibrillation, Hx Peripheral Vascular Disease Respiratory History: Reports: Hx Asthma GI History: Reports: Hx Diverticulosis Musculoskeletal History: Denies: Hx Arthritis Sensory History: Denies: Hx Contacts or Glasses, Hx Legally Blind, Hx Deafness, Hx Hearing Aid Opthamlomology History: Denies: Hx Contacts or Glasses, Hx Legally Blind Neurological History: Denies: Hx Headaches, Hx Seizures, Hx Transient Ischemic Attacks (TIA) - Surgical History Surgery Procedure, Year, and Place: Keloid removed on ventral side of neck. - Immunization History Date of Influenza Vaccine: did not get in Infectious Disease History: No Infectious Disease History: Denies: Hx Clostridium Difficile, Hx Hepatitis, Hx Human Immunodeficiency Virus (HIV), Hx of Known/Suspected MRSA, Hx Shingles, Hx Tuberculosis, Traveled Outside the [place] in Last 30 Days - Family History Known Family History: Positive: Diabetes - grandmother, Other - Grandmother with cancer, DM and HTN. Mother with A-fib. - Social History Alcohol Use: Weekly Alcohol Amount: couple beers twice a week Hx Substance Use: Yes Substance Use Type: Reports: Marijuana Substance Use Comment - Amount & Last Used: within 2 days Hx Tobacco Use: Yes Smoking Status (MU): Current Some Day Smoker Physical Exam Vital Signs On Initial Exam: Initial Vitals Temp Pulse Resp BP Pulse Ox 99.1 F 89 16 129/85 99 09/20/19 10:32 09/20/19 10:32 09/20/19 10:32 09/20/19 10:32 09/20/19 10:32 Diagnostics - Vital Signs Vital Signs Temp Pulse Resp BP Pulse Ox 09/20/19 10:32 99.1 F 89 16 129/85 99 - Laboratory Lab Statement: Any lab studies that have been ordered have been reviewed, and results considered in the medical decision making process.
[2019-09-20] MEDS ORDERED: cefTRIAXone VIAL(*) 250 MG VIAL IM ONE (12:01)
[2019-09-20] MEDS ORDERED: Lidocaine 1% MPF ** 5 ML VIAL IM ONE (12:01)
--- NOTE | 2019-09-20 12:11 | ED ---
GI/ HPI - HPI Summary HPI Summary: 34 year old female presents to emergency department today complaining of numbness of his right index finger 2 days as well as stating "I have an STD". Patient states his right index finger has been numb for approximately 2 days however he has full range of motion and denies any recent trauma. Patient states he is concerned for an STD as he had unprotected sex with a new partner approximately 3 days ago and since then has been having burning with urination as well as a "green/yellow discharge"patient has no other complaints at this time and denies fever, chest pain, abdominal pain, rash. Surgical and family history is noncontributory. - History of Current Complaint Chief Complaint: EDUrogenitalProblems Time Seen by Provider: 09/20/19 11:34 Stated Complaint: GENERAL ILLNESS Hx Obtained From: Patient Onset/Duration: Started Days Ago Timing: Constant Severity: Severe Current Severity: Severe Pain Intensity: 8 Pain Characteristics: Burning Associated Signs and Symptoms: Positive: Dysuria, New Sexual Partner, UTI Symptoms Additional Signs & Symptoms: Positive: Penile Discharge Aggravating Factor(s): Urination - Additional Pertinent History Primary Care Physician: [id number] - Allergy/Home Medications Allergies/Adverse Reactions: Allergies Allergy/AdvReac Type Severity Reaction Status Date / Time peanut oil Allergy Hives/Diff. Verified 09/20/19 10:35 Breathing/I tching scallops Allergy Itching Verified 09/20/19 10:35 shrimp Allergy Itching Verified 09/20/19 10:35 Tree Nuts Allergy Hives/Diff. Verified 09/20/19 10:35 Breathing/I tching Home Medications: Home Medications NK [No Home Medications Reported] 09/20/19 [History Confirmed 09/20/19] PMH/Surg Hx/FS Hx/Imm Hx Endocrine/Hematology History: Denies: Hx Diabetes, Hx Thyroid Disease Cardiovascular History: Denies: Hx Atrial Fibrillation, Hx Peripheral Vascular Disease Respiratory History: Reports: Hx Asthma GI History: Reports: Hx Diverticulosis Musculoskeletal History: Denies: Hx Arthritis Sensory History: Denies: Hx Contacts or Glasses, Hx Legally Blind, Hx Deafness, Hx Hearing Aid Opthamlomology History: Denies: Hx Contacts or Glasses, Hx Legally Blind Neurological History: Denies: Hx Headaches, Hx Seizures, Hx Transient Ischemic Attacks (TIA) - Surgical History Surgery Procedure, Year, and Place: Keloid removed on ventral side of neck. - Immunization History Date of Influenza Vaccine: did not get in Infectious Disease History: No Infectious Disease History: Denies: Hx Clostridium Difficile, Hx Hepatitis, Hx Human Immunodeficiency Virus (HIV), Hx of Known/Suspected MRSA, Hx Shingles, Hx Tuberculosis, Traveled Outside the [place] in Last 30 Days - Family History Known Family History: Positive: Diabetes - grandmother, Other - Grandmother with cancer, DM and HTN. Mother with A-fib. - Social History Alcohol Use: Weekly Alcohol Amount: couple beers twice a week Hx Substance Use: Yes Substance Use Type: Reports: Marijuana Substance Use Comment - Amount & Last Used: within 2 days Hx Tobacco Use: Yes Smoking Status (MU): Current Some Day Smoker Review of Systems Constitutional: Negative Eyes: Negative ENT: Negative Cardiovascular: Negative Respiratory: Negative Gastrointestinal: Negative Positive: burning, dysuria, discharge, pain Musculoskeletal: Negative Skin: Negative Positive: Paresthesia Psychological: Normal All Other Systems Reviewed And Are Negative: Yes Physical Exam - Summary Physical Exam Summary: Patient is in no acute distress. Patient has full range of motion of the right index finger has full motor function of the radial, ulnar, median nerve. Patient has slightly diminished sensation to light touch to the distal right second digit. No obvious deformity or evidence of trauma. Testicular exam chaperoned by DEBBIE Carney Inspection of the genitalia reveals no lesions or erythema. Patient has no penile or testicular tenderness with palpation. No evidence of hernia. There is purulent thick discharge noted from the glans meatus. Triage Information Reviewed: Yes Vital Signs On Initial Exam: Initial Vitals Temp Pulse Resp BP Pulse Ox 99.1 F 89 16 129/85 99 09/20/19 10:32 09/20/19 10:32 09/20/19 10:32 09/20/19 10:32 09/20/19 10:32 Vital Signs Reviewed: Yes Appearance: Positive: Well-Appearing, No Pain Distress, Well-Nourished Skin: Positive: Warm, Skin Color Reflects Adequate Perfusion Eyes: Positive: EOMI, MARTHA ENT: Positive: Hearing grossly normal Respiratory/Lung Sounds: Positive: Clear to Auscultation, Breath Sounds Present Cardiovascular: Positive: RRR, S1, S2 Abdomen Description: Positive: Nontender, Soft Bowel Sounds: Positive: Present Musculoskeletal: Positive: Strength/ROM Intact Neurological: Positive: Sensory/Motor Intact, Alert, Oriented to Person Place, Time, Normal Gait, Facial Symmetry, Speech Normal Psychiatric: Positive: Normal, Affect/Mood Appropriate AVPU Assessment: Alert Procedures - Sedation Patient Received Moderate/Deep Sedation with Procedure: No Diagnostics - Vital Signs Vital Signs Temp Pulse Resp BP Pulse Ox 09/20/19 10:32 99.1 F 89 16 129/85 99 - Laboratory Lab Statement: Any lab studies that have been ordered have been reviewed, and results considered in the medical decision making process. GIGU Course/Dx - Course Course Of Treatment: Patient was evaluated in the emergency department today for finger paresthesia and thoughts that he had an STD. Physical exam HEENT and abnormalities and patient's symptoms are likely benign. Patient is to take ibuprofen and wear cock-up splint at night and follow up with PCP for paresthesias of the finger. Patient's neurovascular exam was within normal limits with full range of motion. Patient was treated empirically for gonorrhea /chlamydia with 250 mg of ceftriaxone and 1 g of azithromycin. Urine sample resulted as negative for UTI. Gonorrhea and Chlamydia cultures were sent and the patient will be contacted for positive results. Patient is to abstain from sexual intercourse for one week and follow-up with primary care provider. - Diagnoses Differential Diagnoses - Male: STD Provider Diagnoses: Dysuria, Paresthesia Discharge ED - Sign-Out/Discharge Documenting (check all that apply): Patient Departure - Discharge Plan Condition: Stable Disposition: HOME Patient Education Materials: Sexually Transmitted Diseases (ED), Paresthesia ( ED) Referrals: Byron Laguerre [employer] [Primary Care Provider] - 3 Days Additional Instructions: You were seen in the emergency department today due to your finger feeling numb and the concern for an STD. Please wear splint at night and take ibuprofen and follow up with your primary care provider for further evaluation and management of your symptoms. You were treated for gonorrhea and Chlamydia in the emergency department today. Please refrain from sexual intercourse for approximately 10 days. We will call you with culture results when they return. Please return to the emergency department immediately if you develop any new or worsening symptoms. - Billing Disposition and Condition Condition: STABLE Disposition: Home
[2019-09-20 12:22] LABS: Urine Appearance Clear; Urine Bilirubin Negative (Negative); Urine Blood Negative (Negative); Urine Color Yellow; Urine Glucose Negative (Negative); Urine Ketones Negative (Negative); Urine Nitrite Negative (Negative); Urine Protein Negative (Negative); Urine Specific Gravity 1.013 (1.010-1.030); Urine Urobilinogen Negative (Negative)
[2019-09-20 12:27] VITALS: BP 110/69
[2019-09-21 12:52] LABS: Chlamydia trachomatis NAA Negative (Negative); Neisseria gonorrhoeae (GC) NAA Negative (Negative)
== END 2019-09-20 12:26 | disposition home or self-care (01) ==
LOC: ED 10:29
DX: R30.0 Dysuria (principal); R20.0 Anesthesia of skin; Z72.0 Tobacco use
CPT/HCPCS: 81003; 87491; 87591; 96372; 99282; A9270-GY; J0696